=== PATIENT | female | born 2000 | race Caucasian/White ===

== ENCOUNTER 2022-12-31 23:52 | Emergency (ER) | payer OTHER, SELFPAY ==
[2022-12-31 23:57] VITALS: BP 127/76; PULSE 64; RESP 16; TEMP 36.8; O2SAT 95
[2023-01-01 00:28] LABS: Bilirubin Urine NEGATIVE (NEGATIVE); Blood Urine MODERATE (NEGATIVE); Clarity Urine CLEAR (CLEAR); Color Urine LT. YELLOW (YELLOW); Glucose Urine UA NEGATIVE (NEGATIVE); Ketones Urine NEGATIVE (NEGATIVE); Leukocyte Esterase Urine LARGE (NEGATIVE); Nitrite Urine NEGATIVE (NEGATIVE); Protein Urine 30 mg/dL (NEG/TRACE); Urobilinogen Urine 0.2 EU/dL (0.2-1.0)
[2023-01-01 00:29] LABS: Urine Microscopic Indicated YES
--- NOTE | 2023-01-01 00:30 | ED.FEMALEGU1 ---
HPI - Female Genitourinary General Chief complaint: Urogenital-Female Stated complaint: UTI COMPLAINTS, LEFT FLANK PAIN- COLD Time Seen by Provider: 01/01/23 00:27 Source: patient Mode of arrival: walk-in Limitations: no limitations History of Present Illness HPI Narrative: patient presents complaining of left CVA pain. Thought she may have a UTI. States she has been drinking plenty of fluids but little urine output. No fever or nausea. no known history of kidney stones Related Data Allergies Allergy/AdvReac Type Severity Reaction Status Date / Time No Known Drug Allergies Allergy Verified 12/31/22 23:57 Review of Systems ROS Status of ROS 10 or more systems reviewed and unremarkable except as noted in history and below PFSH PFS Social History Smoking status: Never smoker Exam Constitutional Vital Signs - 24 hr 12/31/22 23:57 Temperature 98.3 F Pulse Rate [Monitor] 64 Respiratory Rate 16 Blood Pressure [Left Arm] 127/76 H Pulse Oximetry 95 Oxygen Delivery Method Room Air Common normals: no apparent distress, oriented x3, no limitations and healthy appearing Eye Common normals: PERRL and EOMs intact bilaterally Neck & C-Spine Common normals: full ROM and supple Respiratory Common normals: normal respiratory effort and no retractions Cardio Common normals: no JVD, regular rate, regular rhythm, S1 normal heart sound and S2 normal heart sound GI Common normals: Normal to inspection, nondistended, normoactive bowel sounds present, soft to palpation and non-tender Back & Pelvis Common normals: no CVA tenderness and thoracic and lumbar spine normal to inspection Extremity Common normals: normal to inspection and full ROM Neuro Common normals: oriented x3, CN's II-XII intact bilaterally and moves all extremities Psych Appearance: grossly normal Course Vital Signs Vital signs: Vital Signs Temperature 98.3 F 12/31/22 23:57 Pulse Rate 64 12/31/22 23:57 Respiratory Rate 16 12/31/22 23:57 Blood Pressure 127/76 H 12/31/22 23:57 Pulse Oximetry 95 12/31/22 23:57 Oxygen Delivery Method Room Air 12/31/22 23:57 Temperature 98.3 F 12/31/22 23:57 Pulse Rate 64 12/31/22 23:57 Respiratory Rate 16 12/31/22 23:57 Blood Pressure 127/76 H 12/31/22 23:57 Pulse Oximetry 95 12/31/22 23:57 Oxygen Delivery Method Room Air 12/31/22 23:57 MDM - Female Genitourinary MDM Narrative Medical decision making narrative: patient presents with left CVA pain and urinary symptoms. CT neg for stone but findings supportive of early pyelonephritis. UA positive. Patient treated with dose of Rocephin and then discharged home with a prescription of Bactrim ds Clinically very stable. Lab Data Labs: Lab Results 01/01/23 01/01/23 01/01/23 Range/Units 00:05 00:29 00:49 WBC 12.8 H (4.0-11.0) 10^3/uL RBC 4.39 (4.20-5.40) 10^6/uL Hgb 12.4 (12.0-16.0) g/dL Hct 37.9 (36.0-48.0) % MCV 86.3 (81.0-99.0) fL MCH 28.2 (26.7-34.0) pg MCHC 32.7 (29.9-35.2) g/dL RDW 13.5 (11.0-15.0) % Plt Count 234 (150-450) 10^3/uL MPV 10.6 (9.5-13.5) fL Neut % (Auto) 70.9 (43.0-75.0) % Lymph % (Auto) 18.3 L (20.5-60.0) % [place] % (Auto) 8.7 (1.7-12.0) % Eos % (Auto) 1.5 (0.9-7.0) % Baso % (Auto) 0.2 (0.2-2.0) % Neut # (Auto) 9.1 H (1.4-6.5) 10^3/uL Lymph # (Auto) 2.4 (1.2-3.8) 10^3/uL [place] # (Auto) 1.1 H (0.3-0.8) 10^3/uL Eos # (Auto) 0.2 (0.0-0.7) 10^3/uL Baso # (Auto) 0.0 (0.0-0.1) 10^3/uL Abs Immat Gran (auto) 0.05 H (0.00-0.03) 10^3/uL Imm/Tot Granulo (auto) 0.4 (0.0-0.5) % Sodium 137 (136-145) mmol/L Potassium 3.4 L (3.5-5.1) mmol/L Chloride 104 (98-107) mmol/L Carbon Dioxide 26.3 (21.0-32.0) mmol/L Anion Gap 10.1 BUN 10.0 (7.0-18.0) mg/dL Creatinine 0.85 (0.55-1.02) mg/dL Est GFR ( Amer) >60 (>=60) Est GFR (Non-Af Amer) >60 (>=60) BUN/Creatinine Ratio 11.8 Glucose 107 H (74-106) mg/dL Calcium 9.4 (8.5-10.1) mg/dL Urine Color Lt. yellow (YELLOW) Urine Clarity Clear (CLEAR) Urine pH 7.0 (5.0-9.0) Ur Specific [place] 1.010 (1.005-1.025) Urine Protein 30 A (NEG/TRACE) mg/dL Urine Glucose (UA) Negative (NEGATIVE) mg/dL Urine Ketones Negative (NEGATIVE) mg/dL Urine Occult Blood Moderate A (NEGATIVE) Urine Nitrite Negative (NEGATIVE) Urine Bilirubin Negative (NEGATIVE) Urine Urobilinogen 0.2 (0.2-1.0) EU/dL Ur Leukocyte Esterase Large A (NEGATIVE) Urine RBC 5-10 A (0-2) #/HPF Urine WBC 75-100 A (NONE SEEN) #/HPF Ur Squamous Epith Cells Few A (NONE/RARE) #/LPF Urine Crystals None seen (None Seen) #/HPF Urine Bacteria Small A (NONE SEEN) #/HPF Urine Casts None seen (NONE SEEN) #/LPF Urine Mucus None seen (NONE SEEN) Ur Culture Indicated? Yes Urine HCG, Qual Negative (NEGATIVE) Discharge Plan Discharge Chief Complaint: Urogenital-Female Clinical Impression: Pyelonephritis Patient Disposition: Home, Self-Care Instructions: Kidney Infection (ED) Additional Instructions: follow up with your doctor in a couple of days for recheck Stand Alone Forms: Portal Instructions Referrals: Physician,Non-Staff, [Primary Care Provider] - 1 week
[2023-01-01 00:35] LABS: WBC Urine 75-100 #/HPF (NONE SEEN)
[2023-01-01 00:36] LABS: Bacteria Urine SMALL #/HPF (NONE SEEN); Cast Seen? NONE SEEN #/LPF (NONE SEEN); Crystals Seen? None Seen #/HPF (None Seen); Mucus Urine NONE SEEN (NONE SEEN); Squamous Epithelial Cell Urine FEW #/LPF (NONE/RARE); Urine Culture Indicated YES
--- NOTE | 2023-01-01 00:37 | CT_ITS ---
[address] [address] Patient Name: MARY BALL MRN: [id number] date: 2000 Sex: F Assigned Patient Location: ER Current Patient Location: ER Accession/Order Number: [id number] Exam Date: 01/01/2023 00:56 Report Date: 01/01/2023 01:43 At the request of: KILLIAN BARKER Procedure: CT abdomen pelvis wo con EXAMINATION:CT abdomen pelvis wo con INDICATION:Left flank pain. Sharp low back pain with painful urination COMPARISON:None TECHNIQUE:Multiple thin section transaxial slices were acquired through the abdomen and pelvis without intravenous contrast. Coronal and sagittal reconstructed images were reviewed. Oral contrastWas not administered. FINDINGS: LOWER CHEST: The lower chest is unremarkable. LIVER: The liver is unremarkable. GALLBLADDER AND BILIARY SYSTEM: No obvious ductal dilation. No calcified stones. SPLEEN: The spleen is unremarkable. PANCREAS: The pancreas is unremarkable. ADRENAL GLANDS: The adrenal glands are unremarkable. KIDNEYS AND URETERS: There is no definitive hydronephrosis identified in either kidney.There are no obstructing urologic calcifications. There is asymmetric perinephric fat stranding associated with the left mid to lower kidney which may represent a nonspecific infectious or inflammatory process. Pyelonephritis is not excluded. VASCULATURE: Vascularity is unremarkable. PERITONEUM/RETROPERITONEUM: There is a small amount of free fluid in the pelvis. LYMPH NODES: No suspicious lymphadenopathy. GASTROINTESTINAL TRACT: The bowel is normal in caliber.No acute inflammatory changes are associated with the bowel.The appendix is visualized and is not inflamed. BLADDER: The urinary bladder is unremarkable. REPRODUCTIVE SYSTEM: Reproductive system is unremarkable. BODY WALL: Unremarkable. BONES: Osseous structures are unremarkable. IMPRESSION: 1. No definitive obstructive uropathy or obstructing urologic calcifications. However, there is perinephric fat stranding associated with the left kidney concerning for a nonspecific infectious or inflammatory process. Electronically authenticated by: FELIPE BARBA Date: 01/01/2023 01:43
[2023-01-01 00:45] LABS: HCG Qualitative Urine* NEGATIVE (NEGATIVE)
[2023-01-01 00:55] LABS: Basophils Percent Auto 0.2 % (0.2-2.0); Eosinophils Absolute Auto 0.2 10^3/uL (0.0-0.7); Eosinophils Percent Auto 1.5 % (0.9-7.0); Hematocrit 37.9 % (36.0-48.0); Hemoglobin 12.4 g/dL (12.0-16.0); Immature Granulocytes Abs Auto 0.05 10^3/uL (0.00-0.03); Immature Granulocytes Pct Auto 0.4 % (0.0-0.5); Lymphocytes Absolute Auto 2.4 10^3/uL (1.2-3.8); Lymphocytes Percent Auto 18.3 % (20.5-60.0); Mean Corpuscular HGB Conc 32.7 g/dL (29.9-35.2); Mean Corpuscular Hemoglobin 28.2 pg (26.7-34.0); Mean Corpuscular Volume 86.3 fL (81.0-99.0); Mean Platelet Volume 10.6 fL (9.5-13.5); Monocytes Absolute Auto 1.1 10^3/uL (0.3-0.8); Monocytes Percent Auto 8.7 % (1.7-12.0); Neutrophils Absolute Auto 9.1 10^3/uL (1.4-6.5); Neutrophils Percent Auto 70.9 % (43.0-75.0); Platelet Count 234 10^3/uL (150-450); Red Blood Count 4.39 10^6/uL (4.20-5.40); Red Cell Distribution Width 13.5 % (11.0-15.0); White Blood Count 12.8 10^3/uL (4.0-11.0)
[2023-01-01 01:08] LABS: Anion Gap 10.1; BUN Creatinine Ratio 11.8; Calcium 9.4 mg/dL (8.5-10.1); Carbon Dioxide 26.3 mmol/L (21.0-32.0); Chloride 104 mmol/L (98-107); Estimated GFR (African America >60 (>=60); Estimated GFR (Non-African Ame >60 (>=60); Glucose 107 mg/dL (74-106); Potassium 3.4 mmol/L (3.5-5.1); Sodium 137 mmol/L (136-145)
== END 2023-01-01 03:23 | disposition home or self-care (01) ==
PROVIDERS: Emergency Provider Internal Medicine
DX: N12 Tubulo-interstitial nephritis, not specified as acute or chronic (principal)
CPT/HCPCS: 36415; 74176; 80048; 81003; 81015; 84703; 85025; 87086; 87150; 87186; 99284

== ENCOUNTER 2023-01-09 15:24 | Emergency (ER) | payer OTHER, SELFPAY ==
[2023-01-09 15:28] VITALS: BP 132/65; PULSE 99; RESP 18; TEMP 36.8; O2SAT 98; BMI 27.4
--- NOTE | 2023-01-09 15:37 | PC.NURSE ---
01/09/23 1537 PT REPORTS STARTING BACTRIM DS ON 12/30/22 3 DOSES LEFT. PT REPORTS YESTERDAY STARTING PINK SLIGHTLY ELEVATED HIVES TO RLE, LEFT UPPER ARM AND AXILLA, STOMACH AND BACK. PT DENIES ANY SOB OR INABILITY TO SWALLOW. Alex GE RN.
[2023-01-09 16:06] LABS: Bilirubin Urine NEGATIVE (NEGATIVE); Blood Urine NEGATIVE (NEGATIVE); Clarity Urine CLEAR (CLEAR); Color Urine LT. YELLOW (YELLOW); Glucose Urine UA NEGATIVE (NEGATIVE); Ketones Urine NEGATIVE (NEGATIVE); Leukocyte Esterase Urine NEGATIVE (NEGATIVE); Nitrite Urine NEGATIVE (NEGATIVE); Protein Urine NEGATIVE (NEG/TRACE); Specific Gravity Urine <=1.005 (1.005-1.025); Urobilinogen Urine 0.2 EU/dL (0.2-1.0)
[2023-01-09 16:10] LABS: HCG Qualitative Urine* NEGATIVE (NEGATIVE)
[2023-01-09 16:16] LABS: Bacteria Urine NONE SEEN #/HPF (NONE SEEN); Cast Seen? NONE SEEN #/LPF (NONE SEEN); Crystals Seen? None Seen #/HPF (None Seen); Mucus Urine TRACE (NONE SEEN); RBC Urine NONE SEEN #/HPF (0-2); Squamous Epithelial Cell Urine FEW #/LPF (NONE/RARE); Urine Culture Indicated NO; WBC Urine NONE SEEN #/HPF (NONE SEEN)
--- NOTE | 2023-01-09 16:19 | ED.GENADUL1 ---
HPI - General Adult General Chief complaint: Skin/Abscess/Foreign Body Stated complaint: POSS REACTION TO MEDICINE FOR KIDNEY INFECTION Time Seen by Provider: 01/09/23 15:31 Source: patient Mode of arrival: walk-in History of Present Illness HPI narrative: 22-year-old female presents here with a chief complaint of a rash. Patient has been taking Bactrim for the last eight or nine days for a known urinary tract infection. Today she woke up with welts to her left axillary area and lower legs and abdomen. She states they do itch. She denies any shortness of breath or difficulty breathing. She has no swelling, she states she does have sore throat. Note swelling is noted on examination initially. Rash is consistent with pruritic welts. Otherwise healthy. Related Data Previous Rx's Medication Instructions Recorded prednisone 20 mg tablet 20 mg PO BID 5 days #10 tabs 01/09/23 Allergies Allergy/AdvReac Type Severity Reaction Status Date / Time No Known Drug Allergies Allergy Verified 12/31/22 23:57 Review of Systems ROS Narrative All Systems are negative except as noted/marked.All systems reviewed and otherwise negative PFSH PFS Social History Smoking status: Never smoker Exam Narrative Exam Narrative: Nurses note and vital signs reviewed and patient is not hypoxic. General: The patient appears well and in no apparent distress. Patient is resting comfortably on cart. Skin: Warm, dry, no pallor noted. Red raised welt-like rash consistent with medication reaction To lower legs, left axilla and abdomen Head: Normocephalic, atraumatic Eye: Normal conjunctiva, no drainage, EOMI. PERRL Ears, Nose, Mouth, and Throat: oral mucosa is moist. Nares patent. Mouth without vesicles. Ear canals patent. Tm's without Erythema Cardiovascular: Regular Rate and Rhythm Respiratory: Patient is in no distress, no accessory muscle use, lungs are clear to auscultation, no wheezing, rales or rhonchi Musculoskeletal: The patient has no evidence of calf tenderness, no pitting edema, symmetrical pulses noted bilaterally Neurological: A&O x4, normal speech Psychiatric: Cooperative Constitutional Vital Signs - 24 hr 01/09/23 15:28 Temperature 98.2 F Pulse Rate [Monitor] 99 H Respiratory Rate 18 Blood Pressure [Left Arm] 132/65 H Pulse Oximetry 98 Oxygen Delivery Method Room Air Course Vital Signs Vital signs: Vital Signs Temperature 98.2 F 01/09/23 15:28 Pulse Rate 99 H 01/09/23 15:28 Respiratory Rate 18 01/09/23 15:28 Blood Pressure 132/65 H 01/09/23 15:28 Pulse Oximetry 98 01/09/23 15:28 Oxygen Delivery Method Room Air 01/09/23 15:28 Temperature 98.2 F 01/09/23 15:28 Pulse Rate 99 H 01/09/23 15:28 Respiratory Rate 18 01/09/23 15:28 Blood Pressure 132/65 H 01/09/23 15:28 Pulse Oximetry 98 01/09/23 15:28 Oxygen Delivery Method Room Air 01/09/23 15:28 Medical Decision Making MDM Narrative Medical decision making narrative: Patient presented here chief complaint rash. Rash consistent with ALLERGIC reaction to probable sulfa. Patient instructed to stop taking sulfa medication. Urinalysis is unremarkable no acute urinary tract infection at this time. Patient be given a dose of steroids here and discharged home with Medrol Dosepak. Follow-up with primary care physician. Patient verbalized understanding, Agrees with plan of care. Lab Data Labs: Lab Results 01/09/23 Range/Units 15:57 Urine Color Lt. yellow (YELLOW) Urine Clarity Clear (CLEAR) Urine pH 6.0 (5.0-9.0) Ur Specific [place] <=1.005 A (1.005-1.025) Urine Protein Negative (NEG/TRACE) mg/dL Urine Glucose (UA) Negative (NEGATIVE) mg/dL Urine Ketones Negative (NEGATIVE) mg/dL Urine Occult Blood Negative (NEGATIVE) Urine Nitrite Negative (NEGATIVE) Urine Bilirubin Negative (NEGATIVE) Urine Urobilinogen 0.2 (0.2-1.0) EU/dL Ur Leukocyte Esterase Negative (NEGATIVE) Urine RBC None seen (0-2) #/HPF Urine WBC None seen (NONE SEEN) #/HPF Ur Squamous Epith Cells Few A (NONE/RARE) #/LPF Urine Crystals None seen (None Seen) #/HPF Urine Bacteria None seen (NONE SEEN) #/HPF Urine Casts None seen (NONE SEEN) #/LPF Urine Mucus Trace A (NONE SEEN) Ur Culture Indicated? No Discharge Plan Discharge Chief Complaint: Skin/Abscess/Foreign Body Clinical Impression: Rash due to allergy Patient Disposition: Home, Self-Care Time of Disposition Decision: 16:23 Prescriptions / Home Meds: New prednisone 20 mg tablet 20 mg PO BID 5 Days Qty: 10 0RF Instructions: Acute Rash (ED) Stand Alone Forms: Portal Instructions Referrals: Physician,Non-Staff, MD [Primary Care Provider] - 1 week
[2023-01-09] MEDS: DEXAMETHASONE SODIUM PHOSPHATE 10 MG/ML VIAL PO (16:33)
[2023-01-09 16:36] VITALS: BP 134/68; PULSE 77; RESP 16; O2SAT 100
== END 2023-01-09 16:39 | disposition home or self-care (01) ==
PROVIDERS: Physician Assistant; Emergency Provider Emergency Medicine
DX: T78.40XA Allergy, unspecified, initial encounter (principal); Z87.440 Personal history of urinary (tract) infections
CPT/HCPCS: 81001; 84703; 99283; J1100

== ENCOUNTER 2023-07-24 17:57 | Outpatient (OUT) | payer OTHER, SELFPAY ==
[2023-07-24 18:24] LABS: Bilirubin Urine NEGATIVE (NEGATIVE); Blood Urine NEGATIVE (NEGATIVE); Clarity Urine CLEAR (CLEAR); Color Urine LT. YELLOW (YELLOW); Glucose Urine UA NEGATIVE (NEGATIVE); Ketones Urine 15 mg/dL (NEGATIVE); Leukocyte Esterase Urine NEGATIVE (NEGATIVE); Nitrite Urine NEGATIVE (NEGATIVE); Protein Urine NEGATIVE (NEG/TRACE); Specific Gravity Urine <=1.005 (1.005-1.025); Urine Microscopic Indicated NO; Urobilinogen Urine 0.2 EU/dL (0.2-1.0); pH Urine 6.5 (5.0-9.0)
--- NOTE | 2023-07-24 19:35 | PC.NURSE ---
182: Urinalysis obtained and sent to lab. 1849: Patient denies increase pain and states can feel baby is active. Denies vaginal discharge, bleeding and abdominal tightening, abdomen palpates soft during 10 minutes of FHT external monitoring. 1853: Raleigh Naylor CNM notified of UA results, patient complaints and assessment specialist of complaints-denies feeling sharp pains on side of abdomen when lying down on bed, non tender flank area bilaterally. CNM calls in and talks with patient and reviews home going instructions with instruction to call CNM in morning for update/concerns. May use heating pad to back and extra strength tylenol prn for back pain. Return with increase in symptoms- patient verbalized understanding. Accompanied by and discharged ambulatory undelivered at 1920.
== END 2023-07-24 19:20 | disposition home or self-care (01) ==
LOC: FBCO 18:01 → FBC 18:05
PROVIDERS: Visit Provider Midwife
DX: O26.892 Other specified pregnancy related conditions, second trimester (principal); R10.9 Unspecified abdominal pain; M54.9 Dorsalgia, unspecified; Z3A.21 21 weeks gestation of pregnancy
CPT/HCPCS: 59025; 81003

== ENCOUNTER 2023-07-25 16:35 | Emergency (ER) | payer OTHER, SELFPAY | END 2023-07-25 16:53 | disposition left against medical advice (07) | LOC: ER 16:38 | PROVIDERS: Emergency Provider Emergency Medicine | DX: Z53.21 Procedure and treatment not carried out due to patient leaving prior to being seen by health care provider (principal) ==

== ENCOUNTER 2023-07-25 16:45 | Observation (INO) | payer OTHER, SELFPAY ==
--- NOTE | 2023-07-25 17:09 | US_ITS ---
[address] [address] Patient Name: MARY GAMEZ MRN: [id number] date: 2000 Sex: F Assigned Patient Location: [facility] Current Patient Location: [facility] Accession/Order Number: [id number] Exam Date: 07/25/2023 17:10 Report Date: 07/25/2023 17:57 At the request of: CHAYO CHINO Procedure: US renal BI EXAM: Complete renal ultrasound REASON FOR EXAM: Female, 22 years, left flank pain and back pain. TECHNIQUE: Transabdominal ultrasound was performed with real-time and static grayscale imaging. TECHNICAL QUALITY: Technique is adequate. COMPARISON: CT 01/01/2023 FINDINGS: RIGHT KIDNEY: Normal size of the kidney. The kidney measures 11.3 x 5.3 x 5.3 cm. Normal renal cortex. There is no demonstrated renal mass or cyst. There is no hydronephrosis. There is normal vascularity of the right kidney on limited color Doppler scanning. LEFT KIDNEY: Normal size of the kidney. The kidney measures 10 x 5 x 4.7 cm. Normal renal cortex. There is no demonstrated renal mass or cyst. There is no hydronephrosis. There is normal vascularity of the left kidney on limited color Doppler scanning. Bladder: The bladder is mildly distended at the time of scanning. The bladder wall is not thickened. There is no visualized bladder wall mass. AORTA: Not imaged. IVC: Not imaged. US/US renal BI IMPRESSION: Normal renal ultrasound. Electronically authenticated by: BRIGITTE ZAVALA Date: 07/25/2023 17:57
[2023-07-25 17:33] LABS: Basophils Percent Auto 0.2 % (0.2-2.0); Eosinophils Absolute Auto 0.1 10^3/uL (0.0-0.7); Eosinophils Percent Auto 0.4 % (0.9-7.0); Hematocrit 36.6 % (36.0-48.0); Hemoglobin 12.4 g/dL (12.0-16.0); Immature Granulocytes Abs Auto 0.09 10^3/uL (0.00-0.03); Immature Granulocytes Pct Auto 0.6 % (0.0-0.5); Lymphocytes Absolute Auto 1.1 10^3/uL (1.2-3.8); Lymphocytes Percent Auto 7.7 % (20.5-60.0); Mean Corpuscular HGB Conc 33.9 g/dL (29.9-35.2); Mean Corpuscular Hemoglobin 30.5 pg (26.7-34.0); Mean Corpuscular Volume 89.9 fL (81.0-99.0); Mean Platelet Volume 10.7 fL (9.5-13.5); Monocytes Absolute Auto 0.6 10^3/uL (0.3-0.8); Monocytes Percent Auto 3.9 % (1.7-12.0); Neutrophils Absolute Auto 12.4 10^3/uL (1.4-6.5); Neutrophils Percent Auto 87.2 % (43.0-75.0); Platelet Count 186 10^3/uL (150-450); Red Blood Count 4.07 10^6/uL (4.20-5.40); Red Cell Distribution Width 13.8 % (11.0-15.0); White Blood Count 14.3 10^3/uL (4.0-11.0)
[2023-07-25 17:35] VITALS: BP 120/64; PULSE 80
[2023-07-25 17:41] LABS: Bilirubin Urine NEGATIVE (NEGATIVE); Blood Urine NEGATIVE (NEGATIVE); Clarity Urine CLEAR (CLEAR); Color Urine YELLOW (YELLOW); Glucose Urine UA NEGATIVE (NEGATIVE); Ketones Urine >=80 mg/dL (NEGATIVE); Leukocyte Esterase Urine NEGATIVE (NEGATIVE); Nitrite Urine NEGATIVE (NEGATIVE); Protein Urine TRACE mg/dL (NEG/TRACE); Specific Gravity Urine 1.025 (1.005-1.025); Urobilinogen Urine 0.2 EU/dL (0.2-1.0)
[2023-07-25 17:44] LABS: Urine Microscopic Indicated YES
[2023-07-25 17:46] LABS: Alanine Aminotransferase 21 U/L (14-59); Albumin Globulin Ratio 0.8; Albumin Level 3.4 g/dL (3.4-5.0); Alkaline Phosphatase 73 U/L (46-116); Aspartate Amino Transferase 15 U/L (15-37); BUN Creatinine Ratio 12.1; Bilirubin Total 0.3 mg/dL (0.2-1.0); Carbon Dioxide 19.5 mmol/L (21.0-32.0); Chloride 104 mmol/L (98-107); Estimated GFR (African America >60 (>=60); Estimated GFR (Non-African Ame >60 (>=60); Globulin 4.1 g/dL; Glucose 78 mg/dL (74-106); Potassium 3.5 mmol/L (3.5-5.1); Sodium 137 mmol/L (136-145); Total Protein 7.5 g/dL (6.4-8.2)
[2023-07-25 17:48] LABS: Bacteria Urine MODERATE #/HPF (NONE SEEN); Cast Seen? NONE SEEN #/LPF (NONE SEEN); Crystals Seen? None Seen #/HPF (None Seen); Mucus Urine SMALL (NONE SEEN); RBC Urine 0-2 #/HPF (0-2); Squamous Epithelial Cell Urine MODERATE #/LPF (NONE/RARE); Urine Culture Indicated YES
--- NOTE | 2023-07-25 17:51 | PC.NURSE ---
1700: Patient arrives from ER triage with c/o increased back pain and foul odor to urine today. Denies fever,sweats, or chills. 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 C. o generalized belly tenderness since vomiting earlier today from back pain. To room 252 via w/c and oriented to room. TC to CNM and orders received. 1707: US ay bedside. 1725: Lab at bedside. 1730: Urinalysis obtained and sent to lab for culture and analysis. 1735 FHT's auscultated with efm- 140-145 with active movement. [place] only remains on for tracing. 1800: Urinalysis result reported to CNM.
--- NOTE | 2023-07-25 19:27 | W.PC.ACHO ---
Registration Status: ADM WENDY Primary Language: Preferred Language: Active Medications Generic Name Dose Route Start Last Admin Trade Name Freq PRN Reason Stop Dose Admin Acetaminophen 1,000 mg 07/25/23 18:49 Acetaminophen 500 Mg Tablet PO Q6H PRN Pain Scale 1-3 Acetaminophen/Codeine Phosphate 1 tab 07/25/23 18:44 Acetaminophen With Codeine 1 Tab Tablet PO Q6H PRN Pain Scale 4-6 Calcium Carbonate 500 mg 07/25/23 18:49 Calcium Carbonate 500 Mg (200mg Elemental) Tab Chew PO TID PRN heartburn Lactated Ringer's 1,000 mls @ 125 mls/hr 07/25/23 18:45 Lactated Ringers IV .Q8H ANTIONETTE Ampicillin 2,000 mg/ Sodium 100 mls @ 200 mls/hr 07/25/23 22:00 Chloride IV QID ANTIONETTE Ondansetron HCl 4 mg 07/25/23 18:44 Ondansetron Pf 4 Mg/2 Ml Vial IV Q6H PRN Nausea Zolpidem Tartrate 5 mg 07/25/23 18:49 Zolpidem Tartrate 5 Mg Tablet PO HS PRN sleep Diet Category Date Time Status Regular Consistency Diet Diet 07/25/23 18:51 Active
[2023-07-25] MEDS: LACTATED RINGER'S SOLUTION 1,000 ML 999 ML IV (19:50)
[2023-07-25] MEDS: ONDANSETRON PF 4 MG/2 ML VIAL IV (20:01)
[2023-07-25] MEDS: ACETAMINOPHEN 500 MG TABLET 1000 MG PO (21:29)
[2023-07-25] MEDS: AMPICILLIN SODIUM 2,000 MG in 0.9 % SODIUM CHLORIDE 100 ML 200 MG IV (21:31)
[2023-07-25 21:41] VITALS: BP 106/54; PULSE 75
[2023-07-26] MEDS: LACTATED RINGER'S SOLUTION 1,000 ML 125 ML IV (00:47)
[2023-07-26] MEDS: ZOLPIDEM TARTRATE 5 MG TABLET PO (00:48)
[2023-07-26] MEDS: ONDANSETRON PF 4 MG/2 ML VIAL IV ×2 (02:19→10:08)
[2023-07-26 02:20] VITALS: TEMP 37.1
[2023-07-26] MEDS: AMPICILLIN SODIUM 2,000 MG in 0.9 % SODIUM CHLORIDE 100 ML 200 MG IV ×2 (04:15→09:49)
[2023-07-26] MEDS: ACETAMINOPHEN 500 MG TABLET 1000 MG PO ×2 (05:00→10:08)
--- NOTE | 2023-07-26 07:21 | W.PC.ACHO ---
Registration Status: ADM WENDY Primary Language: Preferred Language: Report given to Brandi Downey RN Active Medications Generic Name Dose Route Start Last Admin Trade Name Freq PRN Reason Stop Dose Admin Acetaminophen 1,000 mg 07/25/23 18:49 07/26/23 05:00 Acetaminophen 500 Mg Tablet PO 1,000 mg Q6H PRN Administration Pain Scale 1-3 Acetaminophen/Codeine Phosphate 1 tab 07/25/23 18:44 Acetaminophen With Codeine 1 Tab Tablet PO Q6H PRN Pain Scale 4-6 Calcium Carbonate 500 mg 07/25/23 18:49 Calcium Carbonate 500 Mg (200mg Elemental) Tab Chew PO TID PRN heartburn Lactated Ringer's 1,000 mls @ 125 mls/hr 07/25/23 18:45 07/26/23 00:47 Lactated Ringers IV 125 mls/hr .Q8H ANTIONETTE Administration Ampicillin 2,000 mg/ Sodium 100 mls @ 200 mls/hr 07/25/23 22:00 07/26/23 04:45 Chloride IV Infused QID ANTIONETTE Infusion Ondansetron HCl 4 mg 07/25/23 18:44 07/26/23 02:19 Ondansetron Pf 4 Mg/2 Ml Vial IV 4 mg Q6H PRN Administration Nausea Zolpidem Tartrate 5 mg 07/25/23 18:49 07/26/23 00:48 Zolpidem Tartrate 5 Mg Tablet PO 5 mg HS PRN Administration sleep Diet Category Date Time Status Regular Consistency Diet Diet 07/25/23 18:51 Active IV Insertion/Site Date of IV Line Insertion [20g 07/25/23 right Forearm] IV Insertion Time [20g right 19:45 Forearm]
[2023-07-26 08:48] VITALS: RESP 18; TEMP 37.6
[2023-07-26 08:52] VITALS: BP 110/57; PULSE 81
--- NOTE | 2023-07-26 08:52 | P.EN_ITS ---
Event Note Event Note: patient presents yesterday to unit with c/o nausea, vomiting and low back pain. she called me with concerns of not feeling well and states I had a kidney infection before and it feels like that. My back hurts, tender on my left side and I've vomited from nausea. I did advise her to return to [facility]. During her stay here she has vomited 2-3 times, c/o nausea and L flank pain. Upon my exam today she has no CVA tenderness and points to her lower right side and states that's a little tender, but I feel much better than when I came. Her exam in normal, Heart-normal rate and rhythm, Lungs are clear to all bases. No CVA tenderness, abdomen is soft and non tender. Patient is and has been afe brile. She does have slightly elevated WBCs and neutrophils. I do want to continue to treat for UTI. Patient states she would like to go home as I know i can rest better at home. She is scheduled to see me on Aug 20 for routine PNC visit, but I would like to see her this coming week for follow up. PVU and agrees to return to the hospital if symptoms worsen or any other needs.
--- NOTE | 2023-07-26 09:40 | PC.NURSE ---
taking carly and Zhanna cordova in to see and discusses plan of care
== END 2023-07-26 10:59 | disposition home or self-care (01) ==
PROVIDERS: Admitting Provider Midwife; Visit Provider Midwife
DX: O23.40 Unspecified infection of urinary tract in pregnancy, unspecified trimester (principal); N39.0 Urinary tract infection, site not specified; Z3A.00 Weeks of gestation of pregnancy not specified
CPT/HCPCS: 36415; 76775; 80053; 81001; 85025; 87086; 96361; 96365; 96375; 96376; G0378; G0379; J0290; J2405

== ENCOUNTER 2023-08-08 14:45 | Emergency (ER) | payer OTHER, SELFPAY ==
[2023-08-08 14:52] VITALS: BP 146/85; PULSE 91; RESP 18; TEMP 36.7; O2SAT 98; BMI 35.9
--- OUTSIDE RECORDS SUMMARY | 2023-08-08 15:15 | XMS_ITS | CCD ---
Author Name Unknown Address [address] [place] [address] Organization [facility] Care Team Providers Care Physical Testing Supervisor Name Role Phone Toni Hermosillo MD Primary Care Provider TONI HERMOSILLO Attending Unavailable TONI HERMOSILLO Primary Care Unavailable TONI HERMOSILLO Primary Care Unavailable RUTH AGUILAR Attending Unavailable TONI HERMOSILLO Primary Care Unavailable CHAYO CHINO Referring Unavailable CHAYO CHINO Attending Unavailable CHAYO CHINO Attending Unavailable CHAYO CHINO Attending Unavailable Problems Active Problems Problem Classification Problem Date Documented Date Episodic/Chronic Conduction disorders (1 source) Left bundle branch block; Translations: [Left bundle-branch block, unspecified] Onset: 12-10-2012 12-10-2012 Chronic Joint disorders and dislocations; trauma-related (1 source) Patellofemoral syndrome of left knee; Translations: [Patellofemoral disorders, left knee] Onset: 09-10-2017 09-10-2017 Chronic Past or Other Problems Problem Classification Problem Date Documented Da te Episodic/Chronic Other circulatory disease (1 source) Elevated blood-pressure reading without diagnosis of hypertension; Translations: [Elevated blood-pressure reading, without diagnosis of hypertension] Onset: 07-03-2021 07-03-2021 Episodic Other non-traumatic joint disorders (1 source) Pain in left knee; Translations: [Pain in joint, lower leg] Onset: 09-10-2017 09-10-2017 Episodic Results Test Name Value Interpretation Reference Range Facil ity US OB 14+ WEEKS ANATOMY SCAN on 07-22-2023 US OB 14+ WEEKS ANATOMY SCAN ADDENDUM #1 IMPRESSION: EFW 402 g, 67%ile. ELECTRONICALLY SIGNED BY: Terell Welch MD EXAMINATION: LIMITED ULTRASOUND UTERUS, 2/3 TRIMESTER REASON FOR EXAMINATION: Check anatomy. 1 para Miscarriage . COMPARISONS: NONE Gestational age by previous sonogram: Weeks days LMP: 02/27/2023, Age by LMP: 20 weeks 5 days, INDIGO(LMP): 12/04/2023. FINDINGS: Transabdominal ultrasonography of the gravid uterus was performed. A single living intrauterine is present. The fetus lies in a breech presentation. No abnormalities are noted. BPD 5.04 cm corresponding to gestational age of 21 w 2 d HC 18.62 cm corresponding to gestational age of 21 w 0 d AC 16.30 cm corresponding to gestational age of 31 w 3 d FL 3.46 cm corresponding to gestational age of 20 w 6 d EFW 402 g, %ile. The placenta lies in a fundal position and is intact. The placenta is not low lying. The placenta is a grade 0. The cervix is closed and measures 3.26 cm. heart rate recorded at 141 bpm. The amount of the amniotic fluid is within normal limits. ANA LILIA is 14.25 cm, 15%ile. The average ultrasound gestational age measures 21 weeks 1 days. INDIGO 12/01/2023 IMPRESSION: Single live intrauterine . ELECTRONICALLY SIGNED BY: Terell Welch MD Normal Not Available GROUP A STREP MOLECULAR,THRO ATon 09-17-2022 S. pyogenes DNA ABNER+probe Ql (Throat) Not detected Not Detected [facility] Group A Strep Molecular,Thro aton 09-17-2022 Group A Strep Molecular,Throa t Not detected Normal NODT [facility] S. pyogenes DNA ABNER+probe Ql (Throat)on 09-17-2022 [facility] Encounters Encounter Date Encounter Type Care Provider Facility Start: 08-01-2023 End: 08-02-2023 ambulatory CHAYO FLORO Not Available Start: 07-22-2023 End: 07-23-2023 ambulatory CHAYO L FLORO Not Available Start: 06-24-2023 End: 06-25-2023 ambulatory CHAYO L FLORO Not Available Start: 06-24-2023 ambulatory TONI HERMOSILLO [facility] Start: 05-26-2023 End: 05-27-2023 ambulatory CHAYO L FLORO Not Available Start: 09-16-2022 End: 09-17-2022 ambulatory TONI HERMOSILLO [facility] Start: 09-16-2022 End: 09-16-2022 Subsequent hospital visit by physician Toni Hermosillo MD Work Phone: [facility] Lab Area Procedures Date Procedure Procedure Detail Performing Clinician Start: 09-16-2022 Streptococcus pyogen es DNA [Presence] in Throat by ABNER with probe detection Toni Hermosillo MD Work Phone: Plan of Treatment Date Care Activity Detail Author Start: 06-24-2023 End: 06-24-2023 Patient encounter procedure Cardiology Non-invasive [facility] Start: 03-07-2022 Influenza vaccination INFLUENZA VACC INE (#1) [facility] Start: 2012 MENB (1 of 2 - Risk Bexsero 2-dose series) MENB (1 of 2 - Risk Bexsero 2-dose series) [facility] Start: 2011 HPV VACCINES (1 - 2- dose series) HPV VACCINES (1 - 2-dose series) [facility] Start: 2009 DTaP/Tdap/Td VACCINE S (1 - Tdap) DTaP/Tdap/Td VACCINES (1 - Tdap) [facility] Start: 2003 MMR VACCINES (1 of 1 - Standard series) MMR VACCINES (1 of 1 - Standard series) [facility] Start: 2003 VARICELLA VACCINES ( 1 of 2 - 2-dose childhood series) VARICELLA VACCINES (1 of 2 - 2-dose childhood series) [facility] Start: 02-02-2003 COVID-19 Vaccine (#1) COVID-19 Vacci ne (#1) [facility] Start: 2002 HEPATITIS B VACCINES (1 of 3 - 3-dose series) HEPATITIS B VACCINES (1 of 3 - 3-dose series) [facility] Payers Date Payer Category Payer Unknown [id number] 2002 Unknown [id number] 2002 Unknown [id number] 2002 Unknown [id number] 2002 Unknown [id number] 2002 Unknown [id number] 2002 Unknown [id number] 2002 Unknown [id number] Medicaid [facility] [place] [id number] Effective for all dates [address] [place] [address] Medicaid Cap [id number] Social History Date Type Detail Facility Start: 04-01-2017 Tobacco smoking stat [facility] Never smoked tobacco [facility] Start: 04-01-2017 Tobacco use and exposure Smokeless tobacco non-user [facility] Start: 07-03-2021 Alcohol intake Not Asked [facility] Start: 2002 [facility] Purpose Family History No Family History Records FoundNo Family History Records Found Advance Directives No Advanced Directives Records FoundNo Advanced Directives Records Found Additional Source Comments Care Teams (unrecognized sec tion and content) Physical Testing Supervisor Relationship Specialty Start Date End Date Toni Hermosillo MD [address] [place] [address] PCP - General 04/24/06 INFORMATION SOURCE (unrecogn ized section and content) DATE CREATED AUTHOR 07/02/2023 [facility] DATE CREATED AUTHOR 'S NABIL ATRAMILA 2023 [facility] EPIC FOR RECORDS PERTAINING TO PATIENTS WHO ARE OR HAVE BEEN ENROLLED IN A CHEMICAL DEPENDENCY/SUBSTANCEABUSE PROGRAM, SOME INFORMATION MAY BE OMITTED. This clinical summary was aggregated from multiple sources. Caution should be exercised in using it in the provision of clinical care. This summary normalizes information from multiple sources, and as a consequence, information in this document may materially change the coding, format and clinical context of patient data. In addition, data may be omitted in some cases. CLINICAL DECISIONS SHOULD BE BASED ON THE PRIMARY CLINICAL RECORDS. [facility] provides no warranty or guarantee of the accuracy or completeness of information in this document.
[2023-08-08 15:36] LABS: Bilirubin Urine NEGATIVE (NEGATIVE); Blood Urine NEGATIVE (NEGATIVE); Clarity Urine CLEAR (CLEAR); Color Urine LT. YELLOW (YELLOW); Glucose Urine UA NEGATIVE (NEGATIVE); Ketones Urine TRACE mg/dL (NEGATIVE); Leukocyte Esterase Urine NEGATIVE (NEGATIVE); Nitrite Urine NEGATIVE (NEGATIVE); Protein Urine NEGATIVE (NEG/TRACE); Specific Gravity Urine <=1.005 (1.005-1.025); Urobilinogen Urine 0.2 EU/dL (0.2-1.0)
[2023-08-08 15:43] LABS: Bacteria Urine SMALL #/HPF (NONE SEEN); Cast Seen? NONE SEEN #/LPF (NONE SEEN); Crystals Seen? None Seen #/HPF (None Seen); Mucus Urine NONE SEEN (NONE SEEN); RBC Urine 0-2 #/HPF (0-2); Squamous Epithelial Cell Urine MODERATE #/LPF (NONE/RARE); WBC Urine NONE SEEN #/HPF (NONE SEEN)
--- NOTE | 2023-08-08 15:43 | ED_ITS ---
HPI - General Adult General Chief complaint: Abdominal Pain Stated complaint: LOWER BACK PAIN Time Seen by Provider: 08/08/23 15:03 Mode of arrival: walk-in History of Present Illness HPI narrative: 23-year-old female who is twenty-three weeks five days presents to The emergency room with chief complaint of lower back flank pain. She's had the pain on and off for the last couple of weeks. She was seen by her DRESSMAKER GARMENT FITTER placed on Macrobid previously For suspected urinary tract infection. She states she has occasional sharp shooting pain to the lower flank lumbar area.She denies any fevers or chills. Denies any vaginal bleeding Or abdominal pain. Patient's felt movement and heart tones were one fifty-five today. Patieent's vital signs are stable Related Data Previous Rx's Medication Instructions Recorded prednisone 20 mg tablet 20 mg PO BID 5 days #10 tabs 01/09/23 acetaminophen 500 mg tablet 1,000 mg (2 x 500 mg) PO Q6H PRN 07/26/23 Pain Scale 1-3 4 days #20 tabs nitrofurantoin 100 mg PO BID 5 days #10 caps 07/26/23 monohydrate/macrocrystals 100 mg capsule (Macrobid) ondansetron 8 mg disintegrating 8 mg PO Q8H PRN nausea and 07/26/23 tablet vomiting 5 days #20 tabs prednisone 20 mg tablet 20 mg PO BID 7 days #14 tabs 08/08/23 Allergies Allergy/AdvReac Type Severity Reaction Status Date / Time sulfamethoxazole Allergy Intermediate Rash Verified 07/26/23 07:53 [From Bactrim] trimethoprim [From Bactrim] Allergy Intermediate Rash Verified 07/26/23 07:53 Review of Systems ROS Narrative All Systems are negative except as noted/marked.All systems reviewed and otherwise negative PFSH PFSH Social History Smoking status: Never smoker Exam Narrative Exam Narrative: Nurses note and vital signs reviewed and patient is not hypoxic. General: The patient appears well and in no apparent distress. Patient is resting comfortably on cart. Skin: Warm, dry, no pallor noted. There is no rash noted. Head: Normocephalic, atraumatic Respiratory: Patient is in no distress, no accessory muscle use, lungs are clear to auscultation, no wheezing, rales or rhonchi Back: no flank tenderness to palpation non-tender, no CVA tenderness bilaterally to percussion. GI: Normal bowel sounds, no tenderness to palpation, no masses appreciated. No rebound, guarding, or rigidity noted. Musculoskeletal: The patient has no evidence of calf tenderness, no pitting edema, symmetrical pulses noted bilaterally Neurological: A&O x4, normal speech Psychiatric: Cooperative Constitutional Vital Signs, click to edit/add: Last Vital Signs Temp 98.0 F 08/08/23 14:52 Pulse 91 H 08/08/23 14:52 Resp 18 08/08/23 14:52 BP 146/85 H 08/08/23 14:52 Pulse Ox 98 08/08/23 14:52 Course Vital Signs Vital signs: Vital Signs Temperature 98.0 F 08/08/23 14:52 Pulse Rate 91 H 08/08/23 14:52 Respiratory Rate 18 08/08/23 14:52 Blood Pressure 146/85 H 08/08/23 14:52 Pulse Oximetry 98 08/08/23 14:52 Temperature 98.0 F 08/08/23 14:52 Pulse Rate 91 H 08/08/23 14:52 Respiratory Rate 18 08/08/23 14:52 Blood Pressure 146/85 H 08/08/23 14:52 Pulse Oximetry 98 08/08/23 14:52 Medical Decision Making [facility] Narrative Medical decision making narrative: Patient's 23-year-old one para zero with chief complaint of flank pain and lower back pain. Urinalysis here is unremarkable. Patient has completed a course of antibiotics. The pain she is describing is a musculoskeletal pain. I do not believe she has a kidney stone. She has no pain to palpation the flank area. Patient's alert and oriented. I did discuss stretching and exercises with patient and also maybe massage therapy as it may be due to him lower muscle strain. Patient will follow-up with blanca schmitt her surgical endoscopist.Patient was discharged home a short course of steroids. She denies taking any steroids recently. Patient's home she does use ice or heat therapy. Differential Diagnosis Differential Diagnosis: Musko skeletal pain, kidney stone, urinary tract infection Medical Records Medical records reviewed: Yes I reviewed the patient's medical records Lab Data Lab results reviewed: Yes I reviewed the patient's lab results Labs: Lab Results 08/08/23 Range/Units 15:27 Urine Color Lt. yellow (YELLOW) Urine Clarity Clear (CLEAR) Urine pH 7.0 (5.0-9.0) Ur Specific Randolph <=1.005 A (1.005-1.025) Urine Protein Negative (NEG/TRACE) mg/dL Urine Glucose (UA) Negative (NEGATIVE) mg/dL Urine Ketones Trace A (NEGATIVE) mg/dL Urine Occult Blood Negative (NEGATIVE) Urine Nitrite Negative (NEGATIVE) Urine Bilirubin Negative (NEGATIVE) Urine Urobilinogen 0.2 (0.2-1.0) EU/dL Ur Leukocyte Esterase Negative (NEGATIVE) Urine RBC 0-2 (0-2) #/HPF Urine WBC None seen (NONE SEEN) #/HPF Ur Squamous Epith Cells Moderate A (NONE/RARE) #/LPF Urine Crystals None seen (None Seen) #/HPF Urine Bacteria Small A (NONE SEEN) #/HPF Urine Casts None seen (NONE SEEN) #/LPF Urine Mucus None seen (NONE SEEN) Discharge Plan Discharge Chief Complaint: Abdominal Pain Clinical Impression: Back pain Patient Disposition: Home, Self-Care Time of Disposition Decision: 15:49 Condition: Good Prescriptions / Home Meds: New prednisone 20 mg tablet 20 mg PO BID 7 Days Qty: 14 0RF No Action prednisone 20 mg tablet 20 mg PO BID 5 Days Qty: 10 0RF acetaminophen 500 mg Tablet 1,000 mg PO Q6H PRN (Reason: Pain Scale 1-3) 4 Days Qty: 20 0RF nitrofurantoin monohyd/m-cryst [Macrobid] 100 mg capsule 100 mg PO BID 5 Days Qty: 10 0RF Rx Instructions: must administer with a meal/food ondansetron 8 mg tablet,disintegrating 8 mg PO Q8H PRN (Reason: nausea and vomiting) 5 Days Qty: 20 0RF Instructions: Back Pain (ED), Lower Back Exercises (ED) Stand Alone Forms: Portal Instructions Referrals: Physician,Non-Staff, MD [Primary Care Provider] - 1 week CHAYO SCHMITT APRN, CNM [Physician] - 1 week
== END 2023-08-08 16:16 | disposition home or self-care (01) ==
PROVIDERS: Physician Assistant; Emergency Provider Emergency Medicine Emergency Medical Services
DX: O26.892 Other specified pregnancy related conditions, second trimester (principal); M54.9 Dorsalgia, unspecified; Z3A.23 23 weeks gestation of pregnancy
CPT/HCPCS: 81001; 99283

== ENCOUNTER 2023-09-26 15:11 | Observation (INO) | payer OTHER, SELFPAY ==
[2023-09-26 15:30] VITALS: BP 126/63; PULSE 81
--- OUTSIDE RECORDS SUMMARY | 2023-09-26 15:31 | XMS_ITS | CCD ---
Author Organization [facility] Care Team Providers Care Multimedia Services Manager Name Role Phone Toni Hermosillo MD Primary Care Provider TONI HERMOSILLO Attending Unavailable TONI HERMOSILLO Primary Care Unavailable TONI HERMOSILLO Primary Care Unavailable RUTH AGUILAR Attending Unavailable TONI HERMOSILLO Primary Care Unavailable Unavailable Primary Care Provider UnavailCHAYO Pereira Referring Unavailable CHAYO NAYLOR Attending Unavailable CHAYO NAYLOR Attending Unavailable CHAYO NAYLOR Attending Unavailable CHAYO NAYLOR Attending Unavailable Allergies Allergy Classification Reported Allergen(s) Allergy Type Date of Onset Reaction(s) Facility (5 sources) Sulfonamides (Antibiotic) Propensity to adverse reactions 3 Hives [facility] Medications Current Medications Medication Drug Class(es) Dates Sig (Normalized) Sig (Original) MV-Min-Fe Fum-FA-DHA ( 1 PO) (5 sources) MV-Min- Fe Fum-FA-DHA ( 1 PO) Take by mouth. 0 Active Completed/Discontinued Medications Medication Drug Class(es) Dates Sig (Normalized) Sig (Original) penicillin v potassium 500 mg oral tablet (2 sources) Start: 06-24-2023 End: 07-22-2023 take 1 tablet by mouth in the morning penicillin v potassium (Veetid) 500 MG tablet Indications: Group B streptococcal bacteriuria Take 1 tablet (500 mg) by mouth in the morning and 1 tablet (500 mg) before bedtime. 20 tablet 0 06/24/2023 07/22/2023 Discontinued (Therapy completed) Problems Active Problems Problem Classification Problem Date Documented Date Episodic/Chronic Conduction disorders (1 source) Left bundle branch block; Translations: [Left bundle-branch block, unspecified] Onset: 12-10-2012 12-10-2012 Chronic Joint disorders and dislocations; trauma-related (1 source) Patellofemoral syndrome of left knee; Translations: [Patellofemoral disorders, left knee] Onset: 09-10-2017 09-10-2017 Chronic Other and delivery including normal (2 sources) Second trimester ; Translations: [Encounter for supervision of normal first , second trimester] 08-20-2023 Episodic Other screening for suspected conditions (not mental disorders or infectious disease) (2 sources) Patient encounter status; Translations: [Encounter for other specified screening] 06-24-2023 Episodic Past or Other Problems Problem Classification Problem Date Documented Da te Episodic/Chronic Other circulatory disease (1 source) Elevated blood-pressure reading without diagnosis of hypertension; Translations: [Elevated blood-pressure reading, without diagnosis of hypertension] Onset: 07-03-2021 07-03-2021 Episodic Other non-traumatic joint disorders (1 source) Pain in left knee; Translations: [Pain in joint, lower leg] Onset: 09-10-2017 09-10-2017 Episodic Results Test Name Value Interpretation Reference Range Facility US for pregnancyon Addendum by Terell Welch MD on 07/23/2023 2:10 PM EST ADDENDUM #1 IMPRESSION: EFW 402 g, 67%ile. ELECTRONICALLY SIGNED BY: Terell Welch MD [facility] Single live intrauterine . ELECTRONICALLY SIGNED BY: Terell Welch MD IMAGING EXAMINATION: LIMITED ULTRASOUND UTERUS, 2/3 TRIMESTER REASON [...] measures 21 weeks 1 days. INDIGO 12/01/2023 IMAGING Terell Welch MD - 07/23/2023 EXAMINATION: LIMITED ULTRASOUND UTERUS, 2/3 TRIMESTER REASON [...] . ELECTRONICALLY SIGNED BY: Terell Welch MD [facility] [employer] US for pregnancyOrdered By: Terell Welch on 07-23-2023 [facility] [employer] Work Phone: US OB 14+ WEEKS ANATOMY SCAN on 07-22-2023 US OB 14+ WEEKS ANATOMY SCAN ADDENDUM #1 IMPRESSION: EFW 402 g, 67%ile. ELECTRONICALLY SIGNED BY: Terell eWlch MD EXAMINATION: LIMITED ULTRASOUND UTERUS, 2/3 TRIMESTER [...] BY: Terell Welch MD Normal Not Available US for pregnancyon Radiology Study observation (narrative) [facility] GROUP A STREP MOLECULAR,THRO ATon 09-17-2022 S. pyogenes DNA ABNER+probe Ql (Throat) Not detected Not Detected [facility] Group A Strep Molecular,Thro aton 09-17-2022 Group A Strep Molecular,Throat Not detected Normal NODT [facility] S. pyogenes DNA ABNER+probe Ql (Throat)on 09-17-2022 [facility] Vital Signs Date Time Vital Sign Value Performing Clinician Eugenia mcclelland 08-19-2023 16:02-0500 Body weight 82.56 kg Chayo Naylor [facility] Work Phone: [facility] 08-19-2023 16:02-0500 Diastolic blood pressure 100 mm[Hg] Chayo Naylor [facility] Work Phone: [facility] Comment on above: recheck 122/80 08-19-2023 16:02-0500 Systolic blood pressure 140 mm[Hg] Chayo Floro CNM Work Phone: [facility] Comment on above: recheck 122/80 06-24-2023 16:34-0500 Body weight 77.56 kg Chayo Floro CNM Work Phone: [facility] Encounters Encounter Date Encounter Type Care Provider Facility Start: 08-19-2023 End: 08-20-2023 ambulatory CHAYO L FLORO Not Available Start: 08-19-2023 End: 08-19-2023 Office outpatient visit 15 minutes Chayo L Floro CNM Work Phone: [facility] Comment on above: Encounter for prenat al care of first , second trimester (Primary Dx) Start: 08-19-2023 Bamboo flowsheet Chayo L Matthew ro CNM Work Phone: [facility] Start: 08-19-2023 Bamboo flowsheet Chayo L Matthew ro CNM Work Phone: [facility] Start: 08-01-2023 End: 08-02-2023 ambulatory CHAYO FLORO Not Available Start: 07-22-2023 End: 07-23-2023 ambulatory CHAYO L FLORO Not Available Start: 06-24-2023 End: 06-25-2023 ambulatory CHAYO L FLORO Not Available Start: 06-24-2023 End: 06-24-2023 Office outpatient visit 15 minutes Chayo L Floro CNM Work Phone: [facility] Comment on above: Encounter for anatomic survey Start: 06-24-2023 ambulatory TONI Foster [facility] Start: 05-26-2023 End: 05-27-2023 ambulatory CHAYO L FLORO Not Available Start: 09-16-2022 End: 09-17-2022 ambulatory TONI Foster [facility] Start: 09-16-2022 End: 09-16-2022 Subsequent hospital visit by physician Toni Hermosillo MD Work Phone: [facility] Procedures Date Procedure Procedure Detail Performing Clinician Start: 09-16-2022 Streptococcus pyogen es DNA [Presence] in Throat by ABNER with probe detection Toni Hermosillo MD Work Phone: Plan of Treatment Date Care Activity Detail Author Start: 09-17-2023 End: 09-17-2023 Patient encounter procedure 09/17/2023 2:30 PM EDT Routine [facility] [address] [place] [address] Chayo Naylor, CNM [address] [place], [place] [id number] [facility] Start: 08-19-2023 End: 08-19-2023 Patient encounter procedure [facility] Comment on above: Arrived Start: 06-24-2023 End: 06-24-2023 Patient encounter procedure Cardiology Non-invasive [facility] Start: 03-07-2022 Influenza vaccination INFLUENZ A VACCINE (#1) [facility] Start: 2012 MENB (1 of 2 - Risk Bexsero 2-dose series) MENB (1 of 2 - Risk Bexsero 2-dose series) [facility] Start: 2011 HPV VACCINES (1 - 2- dose series) HPV VACCINES (1 - 2-dose series) [facility] Start: 2009 DTaP/Tdap/Td VACCINE S (1 - Tdap) DTaP/Tdap/Td VACCINES (1 - Tdap) [facility] Start: 2003 MMR VACCINES (1 of 1 - Standard series) MMR VACCINES (1 of 1 - Standard series) [facility] Start: 2003 VARICELLA VACCINES ( 1 of 2 - 2-dose childhood series) VARICELLA VACCINES (1 of 2 - 2-dose childhood series) [facility] Start: 02-02-2003 COVID-19 Vaccine (#1) COVID-19 Vacci ne (#1) [facility] Start: 2002 HEPATITIS B VACCINES (1 of 3 - 3-dose series) HEPATITIS B VACCINES (1 of 3 - 3-dose series) [facility] Payers Date Payer Category Payer Medicaid [id number] 2021 Unknown [id number] 2002 Unknown [id number] 2.16. [id number] 2002 Unknown [id number] 2.16. [id number] 2002 Unknown [id number] 2.16. [id number] 2002 Unknown [id number] 2.16.84 [id number] 2002 Unknown [id number] 2.16.84 [id number] 2002 Unknown [id number] 2.16.84 [id number] 2002 Unknown [id number] 2.16.84 [id number] 2002 Unknown [id number] Social History Date Type Detail Facility Start: 04-01-2017 End: 04-24-2023 Tobacco smoking status IAIS Never smoked tobacco [facility] Start: 04-01-2017 End: 04-24-2023 Tobacco use and exposure Smokeless tobacco non-user [facility] Start: 07-03-2021 [facility] intake Not [facility] Start: 2000 [facility] Start: 04-24-2023 Alcohol intake Lifetime non-d dilshad (finding) [facility] Start: 04-24-2023 History of Social function [facility] Start: 04-24-2023 Tobacco use panel [facility] Start: 03-13-2023 [facility] History of Present illness Narrative 08-19-2023 Chayo Naylor CNM - 08/19/2023 4:00 PM EST Note Date & Type Note Facility 08-19-2023 History of Presen t illness Narrative Subjective No chief complaint on file. Mary Snyder is a 23 y.o. at 24w5d with a working estimated date of delivery of 12/04/2023, by Last Menstrual Period who presents for a routine visit. She denies vaginal bleeding, leakage of fluid, decreased movements, or contractions. Her is complicated by: The following portions of the chart were reviewed this encounter and updated as appropriate: Objective Physical Exam weight: 182 lb Expected Total Weight Gain: Could not be calculated Pregravid BMI: Could not be calculated BP: (!) 140/100 Repeat BP 122/80 after resting Urine glucose-negative,protein-negative Labs Imaging Assessment/Plan Diagnoses and all orders for this visit: Encounter for care of first , second trimester Continue vitamin. Labs reviewed. Rhogam not needed, + blood type GTT T 28 WEEKS Follow up in 4 weeks for a routine visit. documented in this encounter [facility] History of Present illness Narrative 06-24-2023 Amy Muñoz MA - 06/24/2023 4:30 PM EST Note Date & Type Note Facility 06-24-2023 History of Presen t illness Narrative ,Subjective No chief complaint on file. Mary Snyder is a 22 y.o. at 16w5d with a working estimated date of delivery of 12/04/2023, by Last Menstrual Period who presents for a routine visit. She denies vaginal bleeding, leakage of fluid, decreased movements, or contractions. Her is complicated by: The following portions of the chart were reviewed this encounter and updated as appropriate: @RULESMARTLINK([id number],TOBYESPROV)@@ RULESMARTLINK([id number],ALGYESPROV)@@R MICHI ARTLINK([id number],MEDYESPROV)@@RULESMA RTLINK([id number],PROBYESPROV)@@RULESMORIAH RTLIN K([id number],MHYESPROV)@@[employer]( [id number],SHYESPROV)@@[employer]([id number], FHYESPROV)@@[employer]([id number],SO HYESPROV)@ Objective Physical Exam Expected Total Weight Gain: Could not be calculated Pregravid BMI: Could not be calculated Urine glucose-negative,protein-negative Labs No results found for: HGB , HCT , LABPLAT , ABO , LABRHF , LABANTI , LABRPR , HEPBSAG , HIVAB , RUBELLAIGGQT No results found for: PAPPA , AFP , HCG , ESTRIOL , INHBA No results found for: GLUF , GLUT1 , OYPRXPQ5NH , NBVRLRN8SH Imaging Assessment/Plan Continue vitamin. Labs reviewed. Rhogam GTT . Follow up in 2 weeks for a routine visit. documented in this encounter [facility] Evaluation note Note Date & Type Note Facility Evaluation note Diagnosis Encounter for anatomic survey Encounter for anatomic survey documented in this encounter [facility] Evaluation note Note Date & Type Note Facility Evaluation note Diagnosis Encounter for care of first , second trimester- Primary documented in this encounter [facility] Summary Purpose Family History No Family History Records FoundNo Family History Records Found Advance Directives No Advanced Directives Records FoundNo Advanced Directives Records Found Additional Source Comments Care Teams (unrecognized sec tion and content) Multimedia Services Manager Relationship Specialty Start Date End Date Toni Hermosillo MD [address] [facility] [place] [id number] PCP - General 04/24/06 INFORMATION SOURCE (unrecogn ized section and content) DATE CREATED AUTHOR 07/02/2023 [facility] DATE CREATED AUTHOR AUTHOR'S ORGANIZ ATION 08/24/2023 [facility] FOR RECORDS PERTAINING TO PATIENTS WHO ARE [...] BE BASED ON THE PRIMARY CLINICAL RECORDS. [facility]. provides no warranty or guarantee of the accuracy or completeness of information in this document.
[2023-09-26 15:32] VITALS: RESP 18; TEMP 36.3
[2023-09-26 16:33] LABS: Bilirubin Urine NEGATIVE (NEGATIVE); Blood Urine NEGATIVE (NEGATIVE); Clarity Urine CLEAR (CLEAR); Color Urine YELLOW (YELLOW); Glucose Urine UA NEGATIVE (NEGATIVE); Ketones Urine 15 mg/dL (NEGATIVE); Leukocyte Esterase Urine NEGATIVE (NEGATIVE); Nitrite Urine NEGATIVE (NEGATIVE); Protein Urine NEGATIVE (NEG/TRACE); Specific Gravity Urine 1.015 (1.005-1.025); Urobilinogen Urine 0.2 EU/dL (0.2-1.0); pH Urine 6.5 (5.0-9.0)
[2023-09-26 16:36] LABS: Urine Microscopic Indicated NO
--- NOTE | 2023-09-26 17:09 | US_ITS ---
[address] [address] Patient Name: MARY GAMEZ MRN: [id number] date: 2000 Sex: F Assigned Patient Location: [facility] Current Patient Location: Accession/Order Number: [id number] Exam Date: 09/26/2023 19:15 Report Date: 09/29/2023 07:24 At the request of: MELYSSA DYE Procedure: US OB cervical length EXAMINATION: US OB BPP w non-stress, US OB cervical length HISTORY: LGA COMPARISON: No relevant comparison available. TECHNIQUE: Ultrasound biophysical profile was performed in the radiology department. FINDINGS: BREATHING MOVEMENTS: 0.0 GROSS BODY MOVEMENTS: 2.0 TONE: 2.0 QUALITATIVE AMNIOTIC FLUID VOLUME: 2.0 PRESENTATION: BREECH HEART RATE: 161.7 bpm H.B./min AMNIOTIC FLUID VOLUME: 18.2 cm cm GESTATIONAL AGE: 30 weeks 4 days Placental tip to internal os: 6.2 cm Cervix: 5.0 cm, closed CONCLUSION: Total biophysical profile score: 6.0 Closed cervix measuring 5.0 cm Electronically authenticated by: ANA PEREA Date: 09/29/2023 07:24
--- NOTE | 2023-09-26 17:10 | US_ITS ---
[address] [address] Patient Name: MARY GAMEZ MRN: [id number] date: 2000 Sex: F Assigned Patient Location: [facility] Current Patient Location: Accession/Order Number: [id number] Exam Date: 09/26/2023 19:15 Report Date: 09/29/2023 07:24 At the request of: MELYSSA DYE Procedure: US OB BPP w non-stress EXAMINATION: US OB BPP w non-stress, US OB cervical length HISTORY: LGA COMPARISON: No relevant comparison available. TECHNIQUE: Ultrasound biophysical profile was performed in the radiology department. FINDINGS: BREATHING MOVEMENTS: 0.0 GROSS BODY MOVEMENTS: 2.0 TONE: 2.0 QUALITATIVE AMNIOTIC FLUID VOLUME: 2.0 PRESENTATION: BREECH HEART RATE: 161.7 bpm H.B./min AMNIOTIC FLUID VOLUME: 18.2 cm cm GESTATIONAL AGE: 30 weeks 4 days Placental tip to internal os: 6.2 cm Cervix: 5.0 cm, closed CONCLUSION: Total biophysical profile score: 6.0 Closed cervix measuring 5.0 cm Electronically authenticated by: ANA PEREA Date: 09/29/2023 07:24
--- NOTE | 2023-09-26 17:15 | PC.NURSE ---
1630: LAB CALLED AWAITING STAT URINE RESULTS. 1650 : DR DYE CALLED WITH PATIENT COMPLAINTS AND URINE RESULTS- ORDERS RECEIVED AND ASKED TO REVIEW WITH PATIENT PLAN OF CARE. PATIENT AGREEABLE TO ORDERS AND PLAN OF CARE-DR DYE NOTIFIED OF PATIENT COMPLIANCE WITH ORDERS.
[2023-09-26] MEDS: LACTATED RINGER'S SOLUTION 1,000 ML 1000 ML IV ×2 (17:30→20:13)
[2023-09-26] MEDS: TERBUTALINE SULFATE 1 MG/ML VIAL 0.25 MG SUBQ (17:36)
[2023-09-26 17:37] VITALS: BP 113/65; PULSE 69
[2023-09-26 17:38] LABS: Amphetamine Screen Urine NEGATIVE (NEGATIVE); Benzodiazepines Screen Urine NEGATIVE (NEGATIVE); Cannabinoid Screen Urine NEGATIVE (NEGATIVE); Cocaine Screen Urine NEGATIVE (NEGATIVE); Methadone Screen Urine NEGATIVE (NEGATIVE); Methamphetamines Screen Urine NEGATIVE (NEGATIVE); Opiate Screen Urine NEGATIVE (NEGATIVE); Phencyclidine Screen Urine NEGATIVE (NEGATIVE); Tricyclic Antidepressant Urine NEGATIVE (NEGATIVE)
[2023-09-26 17:38] LABS: Basophils Percent Auto 0.3 % (0.2-2.0); Eosinophils Absolute Auto 0.1 10^3/uL (0.0-0.7); Eosinophils Percent Auto 0.6 % (0.9-7.0); Hematocrit 41.2 % (36.0-48.0); Hemoglobin 13.1 g/dL (12.0-16.0); Immature Granulocytes Abs Auto 0.15 10^3/uL (0.00-0.03); Immature Granulocytes Pct Auto 1.1 % (0.0-0.5); Lymphocytes Absolute Auto 2.7 10^3/uL (1.2-3.8); Lymphocytes Percent Auto 19.2 % (20.5-60.0); Mean Corpuscular HGB Conc 31.8 g/dL (29.9-35.2); Mean Corpuscular Hemoglobin 29.6 pg (26.7-34.0); Mean Platelet Volume 11.5 fL (9.5-13.5); Monocytes Absolute Auto 0.8 10^3/uL (0.3-0.8); Monocytes Percent Auto 5.9 % (1.7-12.0); Neutrophils Absolute Auto 10.2 10^3/uL (1.4-6.5); Neutrophils Percent Auto 72.9 % (43.0-75.0); Platelet Count 162 10^3/uL (150-450); Red Blood Count 4.43 10^6/uL (4.20-5.40); White Blood Count 13.9 10^3/uL (4.0-11.0)
[2023-09-26 17:39] LABS: Barbiturates Screen Urine NEGATIVE (NEGATIVE); Buprenorphine Screen Urine NEGATIVE (NEGATIVE); Oxycodone Screen Urine NEGATIVE (NEGATIVE)
--- NOTE | 2023-09-26 17:39 | PC.NURSE ---
1736: terbutaline 0.25 mg sq as ordered
[2023-09-26 17:51] LABS: Alanine Aminotransferase 11 U/L (14-59); Albumin Globulin Ratio 0.8; Albumin Level 3.3 g/dL (3.4-5.0); Alkaline Phosphatase 110 U/L (46-116); Anion Gap 13.8; Aspartate Amino Transferase 14 U/L (15-37); BUN Creatinine Ratio 11.3; Bilirubin Total 0.2 mg/dL (0.2-1.0); Calcium 9.1 mg/dL (8.5-10.1); Carbon Dioxide 22.9 mmol/L (21.0-32.0); Chloride 102 mmol/L (98-107); Estimated GFR (African America >60 (>=60); Estimated GFR (Non-African Ame >60 (>=60); Globulin 4.1 g/dL; Glucose 81 mg/dL (74-106); Potassium 3.7 mmol/L (3.5-5.1); Sodium 135 mmol/L (136-145); Total Protein 7.4 g/dL (6.4-8.2)
== END 2023-09-26 20:35 | disposition home or self-care (01) ==
PROVIDERS: Admitting Provider Obstetrics & Gynecology; Visit Provider Obstetrics & Gynecology
DX: O26.893 Other specified pregnancy related conditions, third trimester (principal); M54.9 Dorsalgia, unspecified; R10.9 Unspecified abdominal pain; Z3A.30 30 weeks gestation of pregnancy
CPT/HCPCS: 36415; 76817; 76818; 80053; 80307; 81003; 85025; 96372; G0378; G0379

== ENCOUNTER 2023-10-28 09:00 | Observation (INO) | payer OTHER, SELFPAY ==
[2023-10-28 09:15] VITALS: BP 133/73; PULSE 80
[2023-10-28 12:29] LABS: Bilirubin Urine NEGATIVE (NEGATIVE); Blood Urine NEGATIVE (NEGATIVE); Clarity Urine CLEAR (CLEAR); Color Urine LT. YELLOW (YELLOW); Glucose Urine UA NEGATIVE (NEGATIVE); Ketones Urine NEGATIVE (NEGATIVE); Leukocyte Esterase Urine NEGATIVE (NEGATIVE); Nitrite Urine NEGATIVE (NEGATIVE); Protein Urine NEGATIVE (NEG/TRACE); Urobilinogen Urine 0.2 EU/dL (0.2-1.0); pH Urine 7.5 (5.0-9.0)
[2023-10-28 12:32] LABS: Urine Microscopic Indicated NO
== END 2023-10-28 12:30 | disposition home or self-care (01) ==
PROVIDERS: Admitting Provider Midwife; Visit Provider Midwife
DX: O47.03 False labor before 37 completed weeks of gestation, third trimester (principal); Z3A.34 34 weeks gestation of pregnancy
CPT/HCPCS: 59025; 81003; G0378; G0379

== ENCOUNTER 2024-07-18 14:51 | Emergency (ER) | payer OTHER, SELFPAY ==
[2024-07-18 14:57] VITALS: BP 127/72; PULSE 89; TEMP 36.3; O2SAT 100; BMI 31.1
--- OUTSIDE RECORDS SUMMARY | 2024-07-18 14:57 | XMS_ITS | CCD ---
Author Organization [facility] Care Team Providers Care Assistant Softball Coach Name Role Phone Toni Hermosillo MD Primary Care Provider TONI HERMOSILLO Attending Unavailable TONI HERMOSILLO Primary Care Unavailable TONI HERMOSILLO Primary Care Unavailable RUTH AGUILAR Attending Unavailable TONI HERMOSILLO Primary Care Unavailable Unavailable Primary Care Provider Unavailyelena e BENJAMIN SANDHU Admitting Unavailable BENJAMIN SANDHU Attending Unavailable ANA DODGE Attending Unavailable De Jesus COLD HEADER OPERATOR-[facility], Kaci Primary Care Provider RAIMUNDO DE JESUSNDRA Attending Unavailable DE JESUS, KACI Primary Care Unavailable DE JESUS KACI Attending Unavailable DE JESUS, KACI Referring Unavailable DE JESUS, KACI Primary Care Unavailable FLORO, CHAYO L Referring Unavailable FLORO, CHAYO L Attending Unavailable FLORO, CHAYO L Attending Unavailable FLORO, CHAYO L Attending Unavailable FLORO, CHAYO L Attending Unavailable FLORO, CHAYO L Attending Unavailable FLORO, CHAYO L Attending Unavailable FLORO, CHAYO L Attending Unavailable FLORO, CHAYO L Referring Unavailable FLORO, CHAYO L Attending Unavailable FLORO, CHAYO L Referring Unavailable Allergies Allergy Classification Reported Allergen(s) Allergy Type Date of Onset Reaction(s) Facility (14 sources) Sulfonamides (Antibiotic) Propensity to adverse reactions 3 [facility] (2 sources) Sulfonamides (Antibiotic); Translations: [SULFA (SULFONAMIDE ANTIBIOTICS)] Propensity to adverse reactions to drug (disorder) 4 [facility] Medications Current Medications Medication Drug Class(es) Dates Sig (Normalized) Sig (Original) MV-Min-Fe Fum-FA-DHA ( 1 PO) (12 sources) MV-Min- Fe Fum-FA-DHA ( 1 PO) Take by mouth. Active MV-Min- Fe Fum-FA-DHA ( 1 PO) Take by mouth. 0 Active no115/iron/folic ac id ( 19 ORAL) (2 sources) no115/i stephane/folic acid ( 19 ORAL) Take by mouth. Active Completed/Discontinued Medications Medication Drug Class(es) Dates [...] Problem Classification Problem Date Documented Date Episodic/Chronic Administrative/social admission (1 source) First encounter by subject; Translations: [Persons encountering health services in other specified circumstances] 04-13-2024 Episodic Conduction disorders (2 sources) Left bundle branch block; Translations: [Left bundle-branch block, unspecified] Onset: 12-10-2012 12-10-2012 Chronic Immunizations and screening for infectious disease (2 sources) Requires tetanus and diphtheria vaccination; Translations: [Encounter for immunization] Onset: 04-28-2024 04-28-2024 Episodic Joint disorders and dislocations; trauma-related (1 source) Patellofemoral syndrome of left knee; Translations: [Patellofemoral disorders, left knee] Onset: 09-10-2017 09-10-2017 Chronic Menstrual disorders (2 sources) Amenorrhea; Translations: [Amenorrhea, unspecified] 05-13-2024 Chronic Other female genital disorders (1 source) Vaginal bleeding Onset: 11-29-2023 Chronic Other and delivery including normal (10 sources) Second trimester ; Translations: [Encounter for supervision of normal first , second trimester] 08-20-2023 Episodic Other screening for suspected conditions (not mental disorders or infectious disease) (2 sources) Patient encounter status; Translations: [Encounter for other specified screening] 06-24-2023 Episodic Unclassified (1 source) Establish Care Onset: 04-13-2024 Past or Other Problems Problem Classification Problem Date Documented Da te Episodic/Chronic Mood disorders (2 sources) Mood disorders Onset: 04-13-2024 04-13-2024 OB-related trauma to perineum and vulva (3 sources) Perineal laceration during delivery, unspecified; Translations: [Perineal laceration during delivery] Onset: 11-29-2023 11-29-2023 Episodic Other circulatory disease (1 source) Elevated blood-pressure reading without diagnosis of hypertension; Translations: [Elevated blood-pressure reading, without diagnosis of hypertension] Onset: 07-03-2021 07-03-2021 Episodic Other non-traumatic joint disorders (1 source) Pain in left knee; Translations: [Pain in joint, lower leg] Onset: 09-10-2017 09-10-2017 Episodic Results Test Name Value Interpretation Reference Range Facility CBC panel Auto (Bld)on 06-16 Erythrocyte distribution width (RBC) [Ratio] 14.5 % 11.0 - 15.0 % [facility] Hematocrit (Bld) [Volume fraction] 38.9 % 35.0 - 45.0 % [facility] Hemoglobin (Bld) [Mass/Vol] 13.2 g/dL 11.7 - 15.5 g/dL [facility] MCH (RBC) [Entitic mass] 28.6 pg 27.0 - 33.0 pg [facility] MCHC (RBC) [Mass/Vol] 33.9 g/dL 32.0 - 36.0 g/dL [facility] Comment on above: For adults, a slight decrease in the calculated MCHC value (in the range of 30 to 32 g/dL) is most likely not clinically significant; however, it should be interpreted with caution in correlation with other red cell parameters and the patient's clinical condition. MCV (RBC) [Entitic vol] 84.4 fL 80.0 - 100.0 fL [facility] Platelet mean volume (Bld) [Entitic vol] 11.4 fL 7.5 - 12.5 fL [facility] Platelets (Bld) [#/Vol] 213 10*3/uL [facility] RBC (Bld) [#/Vol] 4.61 10*6/uL [facility] WBC (Bld) [#/Vol] 7.3 10*3/uL [facility] Laboratory - Blood bankon 12 -11-2024 ABO group Nom (Bld) O [facility] Blood group antibody screen Ql Detected [facility] Comment on above: Reference range No antibodies detected This assay is a screening test for the detection of red blood cell antibodies. The test is not to be used for pretransfusion screening or for the medical management of an alloimmunized . Rh Nom (Bld) Positive [facility] Comment on above: For additional information, please refer to http://Clean Plates.Sabrix/faq/BSX717 (This link is being provided for informational/ educational purposes only.) Laboratory - Chemistry and C hemistry - challengeon 06-16-2024 TSH Qn 1.29 m[IU]/L mIU/L [facility] Comment on above: Reference Range > or = 20 Years 0.40-4.50 Ranges First trimester 0.26-2.66 Second trimester 0.55-2.73 Third trimester 0.43-2.91 Laboratory - Hematology and Cell countson 06-16-2024 HbA1c (Bld) [Mass fraction] 5.5 % NINF [facility] Comment on above: For the purpose of s creening for the presence of diabetes: <5.7% Consistent with the absence of diabetes 5.7-6.4% Consistent with increased risk for diabetes (prediabetes) > or =6.5% Consistent with diabetes This assay result is consistent with a decreased risk of diabetes. Currently, no consensus exists regarding use of hemoglobin A1c for diagnosis of diabetes in children. According to [place] Diabetes Association (ADA) guidelines, hemoglobin A1c <7.0% represents optimal control in non- diabetic patients. Different metrics may apply to specific patient populations. Standards of Medical Care in Diabetes(ADA). Laboratory - Microbiology an d Antimicrobial susceptibilityon 06-16-2024 HBV surface Ag IA Ql Non-Reactive NON-REACTIVE [facility] Comment on above: For additional information, please refer to http://education.[employer]/faq/KXU068 (This link is being provided for informational/ educational purposes only.) HCV Ab IA Ql Non-Reactive NON-REACTIVE [facility] Comment on above: HCV antibody was non-reactive. There is no laboratory evidence of HCV infection. In most cases, no further action is required. However, if recent HCV exposure is suspected, a test for HCV RNA (test code 25893) is suggested. For additional information please refer to http://Clean Plates.[employer]/faq/YUU86d9 (This link is being provided for informational/ educational purposes only.) HIV 1+2 Ab+HIV1 p24 Ag IA Ql Non-Reactive NON-REACTIVE [facility] Comment on above: HIV-1 antigen and HI V-1/HIV-2 antibodies were not detected. There is no laboratory evidence of HIV infection. PLEASE NOTE: This information has been disclosed to you from records whose confidentiality may be protected by state law. If your state requires such protection, then the state law prohibits you from making any further disclosure of the information without the specific written consent of the person to whom it pertains, or as otherwise permitted by law. A general authorization for the release of medical or other information is NOT sufficient for this purpose. For additional information please refer to http://Clean Plates.[employer]/faq/CKW946 (This link is being provided for informational/ educational purposes only.) The performance of this assay has not been clinically validated in patients less than 2 years old. Reagin Ab RPR Ql (S) Non-Reactive NON-REACTIVE [facility] Rubella virus IgG Qn (S) 5.76 [IU]/mL Index [facility] Comment on above: Index Interpretation ----- <0.90 Not consistent with immunity 0.90-0.99 Equivocal > or = 1.00 Consistent with immunity The presence of rubella IgG antibody suggests immunization or past or current infection with rubella virus. No Panel Informationon 06-16 MULTIPLE COLLECTION TIMES FOR SAME TEST TYPE. [facility] Organization Information Site ID: QPT Name: [facility] Address: [address] [place] [address], [address] [place] [id number] Director: Ambrose Orellana MD [facility] HCG ( test) Ql (U)o n 05-13-2024 Interpretation and review of laboratory results Abnormal [facility] Preg Test, Ur Positive Negative [facility] US OB < 14 WEEKS EARLYon US OB < 14 WEEKS EARLY TITLE OF EXAM: OB Ultrasound: REASON FOR EXAM: Confirm dates, amenorrhea. TECHNIQUE: Grayscale imaging is performed. Measurements: heart rate: 156 bpm Sac: 2.7 cm CRL: 1.6 cm GA for sonogram: 8.0 wk (07.4-08.6) Cervix Length: 2.8 cm INDIGO: 12/25/2024 CLINICAL SUMMARY: Endovaginal exam was performed. Early intrauterine is seen with positive cardiac activity. Yolk sac is identified and within normal limits. heart is observed with a heart rate of 156. Uterus and adnexae: Corpus luteum on right ovary measuring 2.8 x 2.7 x 2.7 cm. Limited study. Full anatomical survey not performed. IMPRESSION: Early IUP age 7.7 weeks from LMP. Right corpus luteum. Dictated and transcribed 05/13/24/dpd This report has been electronically signed and approved by the interpreting radiologist. Normal Not Available US RUQon 02-11-2024 US RUQ EXAM: Abdominal Ultrasound, Limited: REASON FOR EXAM: Abdominal pain. COMPARISON: None. TECHNIQUE: Grayscale imaging with color flow Doppler and spectral analysis performed. FINDINGS: The gallbladder is present. It contains no stones. Its wall is not thickened. No pericholecystic fluid formation. The common bile duct is of appropriate caliber. Right renal morphology and echotexture unremarkable. What is seen of the liver and pancreas is unremarkable. Appropriate hepatopetal blood flow in the main portal vein. Negative for ascites. Measurements: CBD: 0.24 cm GB wall: 0.20 cm Right kidney: 11.56 x 4.53 x 4.53 cm Liver: 15.71 cm IMPRESSION: Negative limited upper abdominal ultrasonographic evaluation. *This report is generated using voice recognition reporting ([employer]). On occasion [employer] erroneously drops words from the report or replaces the spoken word with similar sounding words. Please call with any questions/concerns regarding this report.* Dictated and transcribed 02/11/2024/to This report has been electronically signed and approved by the interpreting radiologist. Electronically Signed Kane Proctor M.D. 2024-02-11 16:48:20 Normal Not Available CBC AND AUTO DIFFon 11-29-19 ABSOLUTE BASOPHIL 0.1 X10E9/L [facility]0-0.2 [facility] Comment on above: Performed By: #### C BCA #### [facility] ([id number]) [address] [place] [address] ABSOLUTE NEUTROPHIL 18.3 X10E9/L High 1.5-6.6 [facility] Comment on above: Performed By: #### C BCA #### [facility] ([id number]) [address] [place] [address]12 Basophils/100 WBC (Bld) 0.3 % Normal [facility] Comment on above: Performed By: #### C BCA #### [facility] ([id number]) [address] [place] [address]34 Eosinophils (Bld) [#/Vol] 0.0 10*3/uL Normal 0.0-0.4 [facility] Comment on above: Performed By: #### C BCA #### [facility] ([id number]) [address] [place] [address]67 Eosinophils/100 WBC (Bld) 0.0 % Normal [facility] Comment on above: Performed By: #### C BCA #### [facility] ([id number]) [address] [place] [address] Erythrocyte distribution width (RBC) [Ratio] 14.8 % Normal 11.5-15.0 [facility] Comment on above: Performed By: #### C BCA #### [facility] ([id number]) [address] [place] [address] Hematocrit (Bld) [Volume fraction] 37.2 % Normal 35-47 [facility] Comment on above: Performed By: #### C BCA #### [facility] ([id number]) [address] [place] [address]59 Hemoglobin (Bld) [Mass/Vol] 12.7 g/dL Normal 11.7-15.5 [facility] Comment on above: Performed By: #### C BCA #### [facility] ([id number]) [address] [place] [address]2515 Lymphocytes (Bld) [#/Vol] 1.1 10*3/uL Normal 1.0-3.5 [facility] Comment on above: Performed By: #### C BCA #### [facility] ([id number]) [address] [place] [address]016 Lymphocytes/100 WBC (Bld) 5.5 % Normal [facility] Comment on above: Performed By: #### C BCA #### [facility] ([id number]) [address] [place] [address] 77217 MCH (RBC) [Entitic mass] 29.9 pg Normal 27-34 [facility] Comment on above: Performed By: #### C BCA #### [facility] ([id number]) [address] [place] [address] 13501 MCHC (RBC) [Mass/Vol] 34.0 g/dL Normal 32-36 [facility] Comment on above: Performed By: #### C BCA #### [facility] ([id number]) [address] [place] [address]342 MCV (RBC) [Entitic vol] 88 fL Normal 80-100 [facility] Comment on above: Performed By: #### C BCA #### [facility] ([id number]) [address] [place] [address] 07503 Monocytes (Bld) [#/Vol] 1.1 10*3/uL High 0-0.9 [facility] Comment on above: Performed By: #### C BCA #### [facility] ([id number]) [address] [place] [address] 41429 Monocytes/100 WBC (Bld) 5.1 % Normal [facility] Comment on above: Performed By: #### C BCA #### [facility] ([id number]) [address] [place] [address]0470 Neutrophils/100 WBC (Bld) 89.1 % Normal [facility] Comment on above: Performed By: #### C BCA #### [facility] ([id number]) [address] [place] [address]14 Platelet mean volume (Bld) [Entitic vol] 9.6 fL Normal 7-12 [facility] Comment on above: Performed By: #### C BCA #### [facility] ([id number]) [address] [place] [address] 54174 Platelets (Bld) [#/Vol] 186 10*3/uL Normal 150-450 [facility] Comment on above: Performed By: #### C BCA #### [facility] ([id number]) [address] [place] [address] 26419 RBC COUNT 4.23 X10E12/L Normal 3.80-5.20 [facility] Comment on above: Performed By: #### C BCA #### [facility] ([id number]) [address] [place] [address]0783 WBC (Bld) [#/Vol] 20.6 10*3/uL High 4.0-11.0 [facility] Comment on above: Performed By: #### C BCA #### [facility] ([id number]) [address] [place] [address] US for pregnancyon Addendum by Terell Welch MD on 07/23/2023 2:10 PM EST ADDENDUM #1 IMPRESSION: EFW 402 g, 67%ile. ELECTRONICALLY SIGNED BY: Terell Welch MD [facility] Single live intrauterine . ELECTRONICALLY SIGNED BY: [...] . ELECTRONICALLY SIGNED BY: Terell Welch MD [facility] US for pregnancyOrdered By: Terell Welch on 07-23-2023 [facility] Work Phone: US OB 14+ WEEKS ANATOMY [...] US for pregnancyon Radiology Study observation (narrative) [facility] GROUP A STREP MOLECULAR,THRO ATon 09-17-2022 S. pyogenes DNA ABNER+probe Ql (Throat) Not detected Not Detected [facility] Group A Strep Molecular,Thro aton 09-17-2022 Group A Strep Molecular,Throat Not detected Normal NODT [facility] S. pyogenes DNA ABNER+probe Ql (Throat)on 09-17-2022 [facility] Vital Signs Date Time Vital Sign Value Performing Clinician Facility 06-02-2024 09:10-0500 Body mass index (BMI) [Ratio] 31.46 kg/m2 Chayo Farheeno CNM Work Phone: [facility] 06-02-2024 09:10-0500 Body weight 78.02 kg Chayo Farheeno CNM Work Phone: [facility] 06-02-2024 09:10-0500 Diastolic blood pressure 80 mm[Hg] Chayo Farheeno CNM Work Phone: [facility] 06-02-2024 09:10-0500 Systolic blood pressure 120 mm[Hg] Chayo Farheeno CNM Work Phone: [facility] 05-13-2024 10:25-0500 Body mass index (BMI) [Ratio] 31.83 kg/m2 [facility] Work Phone: [facility] 05-13-2024 10:25-0500 Body weight 78.93 kg Chayo Farheeno CNM Work Phone: [facility] 05-13-2024 09:49-0500 Body height 157.5 cm Chayo Farheeno CNM Work Phone: [facility] 04-13-2024 09:59-0400 Body mass index (BMI) [Ratio] 31.79 kg/m2 Kaci De Jesus COLD HEADER OPERATOR-CAUSTIC OPERATOR Work Phone: [facility] 04-13-2024 09:59-0400 Body temperature 98.1 [degF] Kaci De Jesus COLD HEADER OPERATOR-CAUSTIC OPERATOR Work Phone: [facility] 04-13-2024 09:59-0400 Body weight 78.83 kg Kaci De Jesus COLD HEADER OPERATOR-CAUSTIC OPERATOR Work Phone: [facility] 04-13-2024 09:59-0400 Diastolic blood pressure 74 mm[Hg] Kaci De Jesus COLD HEADER OPERATOR-CAUSTIC OPERATOR Work Phone: [facility] 04-13-2024 09:59-0400 Heart rate 74 /min Kaci De Jesus COLD HEADER OPERATOR-CAUSTIC OPERATOR Work Phone: [facility] 04-13-2024 09:59-0400 SaO2% (BldA) [Mass fraction] 97 % Kaci De Jesus COLD HEADER OPERATOR-CAUSTIC OPERATOR Work Phone: [facility] 04-13-2024 09:59-0400 Systolic blood pressure 118 mm[Hg] Kaci De Jesus COLD HEADER OPERATOR-CAUSTIC OPERATOR Work Phone: [facility] 08-19-2023 16:02-0500 Body weight 82.56 kg Chayo Farheeno CNM Work Phone: [facility] 08-19-2023 16:02-0500 Diastolic blood pressure 100 mm[Hg] Chayo Floro CNM Work Phone: [facility] Comment on above: recheck 122/80 08-19-2023 16:02-0500 Systolic blood pressure 140 mm[Hg] Chayo Floro CNM Work Phone: [facility] Comment on above: recheck 122/80 06-24-2023 16:34-0500 Body weight 77.56 kg Chayo Floro CNM Work Phone: [facility] Encounters Encounter Date Encounter Type Care Provider Facility Start: 07-14-2024 End: 07-14-2024 Bamboo flowsheet Chayo L Floro CNM Work Phone: [facility] Start: 07-14-2024 End: 07-14-2024 Bamboo flowsheet Chaoy L Floro CNM Work Phone: [facility] Start: 07-08-2024 End: 07-08-2024 Telephone encounter Chayo Christiana Floro CNM Work Phone: [facility] Start: 06-01-2024 End: 06-01-2024 Office outpatient visit 15 minutes Chayo Zhongo CNM Work Phone: [facility] Comment on above: Encounter for superv ision of other normal , second trimester (Primary Dx); examination or test, positive result Start: 05-13-2024 End: 05-13-2024 Bamboo flowsheet Chayo Zhongo CNM Work Phone: [facility] Start: 05-13-2024 End: 05-13-2024 Bamboo flowsheet Chayoleigha Zhongo CNM Work Phone: [facility] Start: 05-13-2024 End: 05-13-2024 ambulatory CHAYO L FLORO Not Available Start: 05-13-2024 End: 05-13-2024 Subsequent care visit Chayo Zhongo CNM Work Phone: [facility] Comment on above: GA: 7w5d Start: 04-28-2024 End: 04-28-2024 Clinical Support Kaci De Jesus APRN-JESUS Work Phone: [facility] Comment on above: Need for prophylacti c vaccination against diphtheria and tetanus (Primary Dx) Start: 04-13-2024 End: 04-13-2024 Office outpatient new 30 minutes Kaci De Jesus APRN-CAUSTIC OPERATOR Work Phone: [facility] Comment on above: LBBB (left bundle br anch block) (Primary Dx); Encounter to establish care Start: 04-13-2024 End: 04-13-2024 ambulatory [facility] Start: 02-11-2024 End: 02-11-2024 ambulatory CHAYO L FLORO Not Available Start: 02-03-2024 End: 02-03-2024 ambulatory CHAYO L FLORO Not Available Start: 01-13-2024 End: 01-13-2024 ambulatory CHAYO L FLORO Not Available Start: 12-10-2023 End: 12-10-2023 ambulatory CHAYO L FLORO Not Available Start: 11-30-2023 End: 11-30-2023 ambulatory ANA DODGE [facility] Start: 11-29-2023 End: 11-30-2023 ambulatory BENJAMIN SANDHU [facility] Start: 08-19-2023 End: 08-19-2023 Office outpatient visit 15 minutes Chayo L Floro CNM Work Phone: [facility] Comment on above: Encounter for prenat al care of first , second trimester (Primary Dx) Start: 08-19-2023 End: 08-19-2023 ambulatory CHAYO L FLORO Not Available Start: 08-19-2023 Bamboo flowsheet Chayo L Matthew ro CNM Work Phone: [facility] Start: 08-19-2023 Bamboo flowsheet Chayo L Matthew ro CNM Work Phone: [facility] Start: 08-01-2023 End: 08-01-2023 ambulatory CHAYO FLORO Not Available Start: 07-22-2023 End: 07-22-2023 ambulatory CHAYO L FLORO Not Available Start: 06-24-2023 End: 06-24-2023 Office outpatient visit 15 minutes Chayo L Floro CNM Work Phone: [facility] Comment on above: Encounter for anatomic survey Start: 06-24-2023 End: 06-24-2023 ambulatory TONI HERMOSILLO [facility] Start: 05-26-2023 End: 05-26-2023 ambulatory CHAYO L FLORO Not Available Start: 09-16-2022 End: 09-17-2022 [facility] Start: 09-16-2022 End: 09-16-2022 Subsequent hospital visit by physician Toni Hermosillo MD Work Phone: [facility] Procedures Date Procedure Procedure Detail Performing Clinician Start: 06-15-2024 Antibody screen rbc each serum technique Chayo L Floro CNM Work Phone: Start: 06-15-2024 Hemoglobin glycosylated a1c Chayo Naylor [facility] Work Phone: Start: 06-15-2024 Iaad ia hepatitis b surface antigen Chayo Naylor [facility] Work Phone: Start: 06-15-2024 TSH W/REFLEX TO FT4 Zhanna mario Naylor [facility] Work Phone: Start: 05-13-2024 Urine test visual color cmprsn meths Chayo Naylor [facility] Work Phone: Start: 04-13-2024 Adult depression scr eening assessment Kaci De Jesus COLD HEADER OPERATOR-CAUSTIC OPERATOR Work Phone: Start: 09-16-2022 Streptococcus pyogen es DNA [Presence] in Throat by ABNER with probe detection Toni Hermosillo MD Work Phone: Plan of Treatment Date Care Activity Detail Author Start: 04-28-2034 DTaP,Tdap and Td Vaccines (2 - Td or Tdap) DTaP,Tdap and Td Vaccines (2 - Td or Tdap) [facility] Start: 04-14-2025 End: 04-14-2025 Patient encounter procedure 04/14/2025 11:00 AM EDT Office Visit [facility] [address] [place] [phone] Kaci De Jesus APRN-CAUSTIC OPERATOR [address] [place] [address], [place] [phone] [facility] Start: 04-13-2025 Adult BMI Screening Adult BMI Screen ing [facility] Start: 04-13-2025 Depression Screening Depression Scre ening [facility] Start: 04-13-2025 Tobacco Screening Tobacco Screening [facility] Start: 11-28-2024 Adult BMI Screening Adult BMI Screen ing [facility] Start: 11-28-2024 Tobacco Screening Tobacco Screening [facility] Start: 07-08-2024 End: 07-08-2024 Patient encounter procedure 07/08/2024 9:30 AM EST Routine [facility] [address] [place] [id number] Chayo Naylor CNM [address] [place], [place] [id number] [facility] Start: 06-10-2024 End: 06-10-2025 Bacteria identified in Urine by Culture Urine culture Microbiology Routine examination or test, positive result Expected: 06/10/2024 (Approximate), Expires: 06/10/2025 [facility] Comment on above: Expected: 06/10/2024 (Approximate), Expires: 06/10/2025 Start: 06-10-2024 End: 06-10-2025 DRUG TOX MONITORIGN 6 W/ CONF,URINE DRUG TOX MONITORIGN 6 W/ CONF,URINE Lab Routine examination or test, positive result Expected: 06/10/2024 (Approximate), Expires: 06/10/2025 [facility] Work Phone: Comment on above: Expected: 06/10/2024 (Approximate), Expires: 06/10/2025 Start: 06-10-2024 End: 06-10-2025 Neisseria gonorrhoeae DNA [Presence] in Cervical mucus by ABNER with probe detection C. trachomatis / N. gonorrhoeae, DNA probe Pathology and Cytology Routine examination or test, positive result Expected: 06/10/2024 (Approximate), Expires: 06/10/2025 [facility] Comment on above: Expected: 06/10/2024 (Approximate), Expires: 06/10/2025 Start: 06-10-2024 End: 06-10-2025 URINALYSIS MICROSCOPIC URINALYSIS MICROSCOPIC Lab Routine examination or test, positive result Expected: 06/10/2024 (Approximate), Expires: 06/10/2025 [facility] Comment on above: Expected: 06/10/2024 (Approximate), Expires: 06/10/2025 Start: 05-13-2024 End: 05-13-2024 Professional / ancillary services management 05/13/2024 10:00 AM EST Ancillary Procedure [facility] [address] [phone] [facility] Start: 04-28-2024 End: 04-28-2024 Clinical Support 04/28/2024 10:00 AM EDT Clinical Support [facility] [address] [place] [phone] Kaci De Jesus, COLD HEADER OPERATOR-CAUSTIC OPERATOR [address], [place] [address] [facility] Start: 03-07-2024 Influenza vaccination Influenza Vacc ine [facility] Start: 09-17-2023 End: 09-17-2023 Patient encounter procedure 09/17/2023 2:30 PM EDT Routine [facility] [address] [place] [address] Chayo Naylor, CNM [address] [place] [address] [facility] Start: 08-19-2023 End: 08-19-2023 Patient encounter procedure [facility] Comment on above: Arrived Start: 2023 Screening for malign ant neoplasm of cervix Pap Smear [facility] Start: 06-24-2023 End: 06-24-2023 Patient encounter procedure Cardiology Non-invasive [facility] Start: 03-07-2022 Influenza vaccination INFLUENZA VACC INE (#1) [facility] Start: 2021 DTaP,Tdap and Td Vaccines (1 - Tdap) DTaP,Tdap and Td Vaccines (1 - Tdap) [facility] Start: 2020 Adult BMI Follow Up Plan Adult BMI Follow Up Plan [facility] Start: 2014 Depression Screening Depression Irma dill [facility] Start: 2012 MENB (1 of 2 - Risk Bexsero 2-dose series) MENB (1 of 2 - Risk Bexsero 2-dose series) [facility] Start: 2011 HPV VACCINES (1 - 2-dose series) HPV VACCINES (1 - 2-dose series) [facility] Start: 2009 DTaP/Tdap/Td VACCINE S (1 - Tdap) DTaP/Tdap/Td VACCINES (1 - Tdap) [facility] Start: 2003 MMR VACCINES (1 of 1 - Standard series) MMR VACCINES (1 of 1 - Standard series) [facility] Start: 2003 VARICELLA VACCINES ( 1 of 2 - 2-dose childhood series) VARICELLA VACCINES (1 of 2 - 2-dose childhood series) [facility] Start: 02-02-2003 COVID-19 Vaccine (#1) COVID-19 Vacci ne (#1) [facility] Start: 2002 HEPATITIS B VACCINES (1 of 3 - 3-dose series) HEPATITIS B VACCINES (1 of 3 - 3-dose series) [facility] Start: 2002 Screening for Chlamy red trachomatis Chlamydia Screening [facility] Immunizations Immunization Date Immunization Notes Care Provider Fa cili 04-28-2024 tetanus toxoid, redu seble diphtheria toxoid, and acellular pertussis vaccine, adsorbed Kaci De Jesus COLD HEADER OPERATOR-CAUSTIC OPERATOR Work Phone: [facility] 04-28-2024 Immunization, In Clinic,; Translations: [Drug or medicament (substance)] Kaci De Jesus COLD HEADER OPERATOR-CAUSTIC OPERATOR Work Phone: [facility] Payers Date Payer Category Payer Medicaid [facility] ..[id number] 2022 Medicaid [id number] 2021 Private Health Insurance [facility]ICA[facility] [id number] 2021 Unknown [id number] 2002 Unknown [id number] 2.16840.1.884374.3.579.2. 430 2002 Unknown [id number] 2.16840.1.948145.3.579.2. 430 2002 Unknown [id number] 2.16.840.1.134291.3.579.2. 430 2002 Unknown [id number] 2.16.840.1.343819.3.579.2. 1286 2002 Unknown [id number] 2.16840.1.129642.3.579.2. 1286 2002 Unknown [id number] 2.16840.1.049255.3.579.2. 1259 2002 Unknown [id number] 2.16.840.1.029201.3.579.2. 1259 2002 Unknown [id number] 2.16.840.1.120043.3.579.2. 1259 2002 Unknown [id number] 2.16.840.1.074485.3.579.2. 1259 2002 Unknown [id number] 2.16.840.1.848734.3.579.2. 1259 2002 Unknown [id number] 2.16.840.1.357762.3.579.2. 1259 2002 Unknown [id number] 2.16.840.1.755045.3.579.2. 1259 2002 Unknown [id number] 2.16.840.1.689538.3.579.2. 1259 2002 Unknown [id number] 2.16.840.1.846750.3.579.2. 1259 2002 Unknown [id number] 2.16.840.1.934349.3.579.2. 1259 2002 Unknown [id number] 2.16.840.1.403326.3.579.2. 1259 Social History Date Type Detail Facility Start: 04-01-2017 End: 04-24-2023 Tobacco smoking status SDIS Never smoked tobacco [facility] Start: 04-01-2017 End: 04-24-2023 Tobacco use and exposure Smokeless tobacco non-user [facility] Start: 07-03-2021 [facility] Start: 04-24-2023 End: 05-13-2024 Alcohol intake Lifetime non-drinker (finding) [facility] Start: 04-24-2023 End: 01-13-2024 History of Social function [facility] Start: 04-24-2023 End: 01-13-2024 Tobacco use panel [facility] Start: 03-13-2023 [facility] Start: 04-13-2024 Alcoholic beverage intake Ex-drinker (finding) [facility] Adolescent depressio n screening assessment 0 [facility] Start: 11-29-2023 Sex Female (finding) [facility] The thought of harmi ng myself has occurred to me Never [facility] Clinical Notes 06-24-2023 to 07-08-2024 Telephone Encounter - Ale Arce - 07/08/2024 8:29 AM ESTTelephone Encounter - Ale Arce - 07/08/2024 8:29 AM Alisha Naylor CNM - 06/01/2024 10:45 AM EST Note Date & Type Note Facility 07-08-2024 Telephone encount er Note Vm left 8:25 Pt left vm that she /family became ill yesterday and will need to cancel todays appointment. Please return call to reschedule. [facility] 07-08-2024 Miscellaneous Notes Formattin g of this note might be different from the original. Vm left 8:25 Pt left vm that she /family became ill yesterday and will need to cancel todays appointment. Please return call to reschedule. documented in this encounter [facility] 06-01-2024 History of Presen t illness Narrative Subjective No chief complaint on file. Nehal Snyder is a 23 y.o. at 10w4d with a working estimated date of delivery of 12/25/2024, by Last Menstrual Period who presents for a routine visit. She denies vaginal bleeding, leakage of fluid, decreased movements, and contractions. OB History Para Term AB Living 2 1 1 0 0 1 SAB IAB Ectopic Multiple Live Births 0 1 # Outcome Date GA Lbr Abraham/2nd Weight Sex Type Anes PTL Lv 2 Current 1 Term 11/29/23 39w2d 8 lb 12 oz M Vag-Spont N SHERWIN Her is complicated by: nausea The following portions of the chart were reviewed this encounter and updated as appropriate: Objective Physical Exam weight: 172 lb, Pregravid BMI: 31.82 Expected Total Weight Gain: 11 lb-19 lb BP: 120/80 Labs Imaging Assessment/Plan Diagnoses and all orders for this visit: Encounter for supervision of other normal , second trimester examination or test, positive result - Hepatitis B surface antigen; Future - Rubella antibody, IgG; Future - CBC; Future - Antibody screen; Future - RPR; Future - Hemoglobin A1c; Future - TSH W/REFLEX TO FT4; Future - HIV-1 and HIV-2 antibodies; Future - ABO/Rh; Future - DRUG TOX MONITORIGN 6 W/ CONF,URINE; Future - Hepatitis C antibody; Future - Urine culture; Future - URINALYSIS MICROSCOPIC; Future - C. trachomatis / N. gonorrhoeae, DNA probe; Future Urine protein-negative Urine glucose-negative Continue vitamin. Labs reviewed. Order placed for anatomy scan at 20 weeks. Follow up in 4 weeks for a routine visit. documented in this encounter [facility] 05-13-2024 History of Presen t illness Narrative Subjective Nehal Snyder is a 23 y.o. at 7w5d with a working estimated date of delivery of 12/25/2024, by Last Menstrual Period who presents for an initial visit. This is unplanned. 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 OB History Para Term AB Living 2 1 1 0 0 1 SAB IAB Ectopic Multiple Live Births 0 1 # Outcome Date GA Lbr Abraham/2nd Weight Sex Type Anes PTL Lv 2 Current 1 Term 11/29/23 39w2d 8 lb 12 oz M Vag-Spont N SHERWIN Her is complicated by: Patient referred by Gynecology History Last Pap The following portions of the chart were reviewed this encounter and updated as appropriate: @RULESMARTLINK([id number],TOBYESPRO V)@@RULESMARTLINK([id number],ALGYES PROV)@@MANDO ARTLINK([id number],MEDYESPROV)@@MARY ESMARTLINK([id number],PROBYESPROV)@ @RULESJOCYIN K([id number],MHYESPROV)@@RULESMARTL INK([id number],SHYESPROV)@@RULESMAR TLINK([id number], FHYESPROV)@@RULESMARTLINK([id number] 4,SOHYESPROV)@ Review of Systems History obtained from the patient Objective Physical Exam Expected Total Weight Gain: 11 lb-19 lb Pregravid BMI: 31.82 Urine protein-negative Urine glucose-negative Labs Assessment/Plan Diagnoses and all orders for this visit: examination or test, positive result - Ambulatory referral to Obstetrics / Gynecology; Future Amenorrhea - POCT , urine Blue education folder given. Patient educated on safe medication list. Genetic testing information given. Discussed the do's and don'ts in the blue folder. We discussed labs and what we draw and what we are testing for. Patient is also informed that we do a urine drug test. Patient also given office phone number and [facility] number to call in case of an emergency or after hours needs. PVU and all questions answered. We did discuss place of delivery. Patient should plan to go to [facility] for all services unless an emergency and they need to go to the closest ER. We can make other arrangements possibly if patient would like to deliver at another facility but I did explain I am now at [facility] 100% of the time and would like to do all deliveries there. documented in this encounter [facility] 04-28-2024 History of Presen t illness Narrative Tdap given in left deltoid, no adverse reactions VIS sheet given documented in this encounter [facility] 04-13-2024 History of Presen t illness Narrative Subjective Patient ID: Nehal Snyder is a 23 y.o. female. GARCÍA Calvert presents to the office to establish care. No concerns. Still breast feeding. Hx: Left BBB- reports since about 6 months of age. Denies any issues or concerns with this at this time. Reports she was on medication as a child but stopped the medication at about 19 years of age. She does not recall what medication. Follows routinely with women's health- Zhanna Naylor. Patient Active Problem List Diagnosis Perineal laceration during delivery, condition Current Outpatient Medications on File Prior to Visit Medication Sig Dispense Refill no115/iron/folic acid ( 19 ORAL) Take by mouth. No current facility-administered medications on file prior to visit. Past Surgical History: Procedure Laterality Date REPAIR TEAR VAGINAL N/A 11/29/2023 Performed by Benjamin Sandhu MD at [facility] Family History Problem Relation Age of Onset Hypertension Mother Hypertension Father Diabetes Maternal Grandmother Diabetes Paternal Grandmother The following portions of the patient's history were reviewed and updated as appropriate: allergies, current medications, past family history, past medical history, past social history, past surgical history, problem list, and medication reconciliation was completed including current medication and post discharge medication. Review of Systems Constitutional: Negative for chills, diaphoresis, fatigue, fever and unexpected weight change. HENT: Negative. Eyes: Negative. Respiratory: Negative for cough, chest tightness, shortness of breath and wheezing. Cardiovascular: Negative for chest pain, palpitations and leg swelling. Gastrointestinal: Negative for abdominal pain, diarrhea, nausea and vomiting. Endocrine: Negative for polydipsia, polyphagia and polyuria. Genitourinary: Negative for difficulty urinating, frequency, hematuria and urgency. Musculoskeletal: Negative for arthralgias, gait problem, joint swelling and neck pain. Skin: Negative. Neurological: Negative for dizziness, syncope, weakness, light-headedness, numbness and headaches. Psychiatric/Behavioral: Negative for self-injury and suicidal ideas. Objective Physical Exam Vitals and nursing note reviewed. Constitutional: General: She is not in acute distress. Appearance: Normal appearance. She is well-developed. She is not ill-appearing. HENT: Head: Normocephalic and atraumatic. Right Ear: Tympanic membrane, ear canal and external ear normal. Left Ear: Tympanic membrane, ear canal and external ear normal. Nose: Nose normal. Mouth/Throat: Mouth: Mucous membranes are moist. Pharynx: Oropharynx is clear. Eyes: Extraocular Movements: Extraocular movements intact. Pupils: Pupils are equal, round, and reactive to light. Neck: Vascular: No carotid bruit. Cardiovascular: Rate and Rhythm: Normal rate and regular rhythm. Pulses: Normal pulses. Heart sounds: Normal heart sounds. No murmur heard. Pulmonary: Effort: Pulmonary effort is normal. No respiratory distress. Breath sounds: Normal breath sounds. No wheezing, rhonchi or rales. Chest: Chest wall: No tenderness. Abdominal: General: Bowel sounds are normal. There is no distension. Palpations: Abdomen is soft. There is no mass. Tenderness: There is no abdominal tenderness. There is no guarding or rebound. Hernia: No hernia is present. Musculoskeletal: General: Normal range of motion. Cervical back: Normal range of motion and neck supple. No rigidity or tenderness. Right lower leg: No edema. Left lower leg: No edema. Lymphadenopathy: Cervical: No cervical adenopathy. Skin: General: Skin is warm and dry. Capillary Refill: Capillary refill takes less than 2 seconds. Findings: No rash. Neurological: General: No focal deficit present. Mental Status: She is alert and oriented to person, place, and time. Motor: No weakness. Psychiatric: Mood and Affect: Mood normal. Behavior: Behavior normal. Assessment/Plan Nehal presents to the office to establish care. She has no concerns today. She reports she has not had tetanus vaccine in over 10 years. She should have Tdap anyway d/t having . She should be vaccinated for pertussis. She may follow routinely for annual wellness. Nehal was seen today for establish care. Diagnoses and all orders for this visit: LBBB (left bundle branch block) Encounter to establish care STEPHEN Vásquez 04/13/24 1024 documented in this encounter [facility] 08-19-2023 History of Presen t illness Narrative Subjective No chief complaint on file. Nehal Snyder is a 23 y.o. at 24w5d [...] 140/100 Repeat BP 122/80 after resting Urine glucose-negative,protein-negati ve Labs Imaging Assessment/Plan Diagnoses and all orders for this visit: Encounter for care of first , second trimester Continue vitamin. Labs reviewed. Rhogam not needed, + blood type GTT T 28 WEEKS Follow up in 4 weeks for a routine visit. documented in this encounter [facility] 06-24-2023 History of Presen t illness Narrative ,Subjective No chief complaint on file. Nehal Snyder is a 22 y.o. at 16w5d with a working estimated date of delivery of 12/04/2023, by Last Menstrual Period who presents for a routine visit. She denies vaginal bleeding, leakage of fluid, decreased movements, or contractions. Her is complicated by: The following portions of the chart were reviewed this encounter and updated as appropriate: @RULESMARTLINK([id number],TOBYESPRO V)@@RULESMARTLINK([id number],ALGYES PROV)@@RULESM ARTLINK([id number],MEDYESPROV)@@RUL ESMARTLINK([id number],PROBYESPROV)@ @RULESMARTLIN K([id number],MHYESPROV)@@RULESMARTL INK([id number],SHYESPROV)@@RULESMAR TLINK([id number], FHYESPROV)@@RULESMARTLINK([id number] 4,SOHYESPROV)@ Objective Physical Exam Expected Total Weight Gain: Could not be calculated Pregravid BMI: Could not be calculated Urine glucose-negative,protein-negati ve Labs No results found for: HGB , HCT , LABPLAT , ABO , LABRHF , LABANTI , LABRPR , HEPBSAG , HIVAB , RUBELLAIGGQT No results found for: PAPPA , AFP , HCG , ESTRIOL , INHBA No results found for: GLUF , GLUT1 , [id number] , [id number] Imaging Assessment/Plan Continue vitamin. Labs reviewed. Rhogam GTT . Follow up in 2 weeks for a routine visit. documented in this encounter [facility] Evaluation note Diagnosis Encounter for anatomic survey Encounter for anatomic survey documented in this encounter [facility] Healthcare[facility]* Diagnosis Encounter for care of first , second trimester- Primary documented in this encounter [facility] HealthcareEvaluation note* Diagnosis LBBB (left bundle branch block)- Primary Other left bundle branch block Encounter to establish care [facility] Diagnosis Need for prophylactic vaccination against diphtheria and tetanus- Primary [facility] Diagnosis examination or test, positive result- Primary Amenorrhea Absence of menstruation [facility]* Diagnosis Encounter for supervision of other normal , second trimester- Primary examination or test, positive result documented in this encounter [facility]* Attachments The following attachments cannot be sent through Care Everywhere. * Tdap vaccine ([place]) documented in this [facility] SystemInstructionsNot on file documented in [place] encounterProCent[place] Summary Purpose Family History No Family History Records FoundNo Family History Records FoundNo Family History Records FoundNo Family History Records Found Advance Directives No Advanced Directives Records FoundNo Advanced Directives Records FoundNo Advanced Directives Records FoundNo Advanced Directives Records Found Additional Source Comments Care Teams (unrecognized sec tion and content) Assistant Softball Coach Relationship Specialty Start Date End Date Toni Hermosillo MD [address] [place] [phone] PCP - General 04/24/06 Assistant Softball Coach Relationship Specialty Start Date End Date Kaci De Jesus APRN-[facility] [address] [place] [phone] PCP - General Nurse Practitioner 04/13/24 INFORMATION SOURCE (unrecogn ized section and content) DATE CREATED AUTHOR 07/02/2023 [facility] DATE CREATED AUTHOR AUTHOR'S ORGANIZ ATION 12/01/2023 [facility] DATE CREATED AUTHOR AUTHOR'S ORGANIZ ATION 04/29/2024 [facility] DATE CREATED AUTHOR AUTHOR'S ORGANIZ ATION 05/17/2024 [facility] dical Specialists EPIC Reason for Visit (unrecogniz ed section and content) Reason Comments Establish Care FOR RECORDS PERTAINING TO PATIENTS WHO ARE [...] BE BASED ON THE PRIMARY CLINICAL RECORDS. [facility] [address] [facility]. provides no warranty or guarantee of the accuracy or completeness of information in this document.
--- NOTE | 2024-07-18 15:05 | US_ITS ---
[facility] [place] [id number] Patient Name: MARY GAMEZ MRN: [id number] date: 2000 Sex: F Assigned Patient Location: ER Current Patient Location: ER Accession/Order Number: [id number] Exam Date: 07/18/2024 15:35 Report Date: 07/18/2024 16:01 At the request of: SRAVANTHI WARD Procedure: US OB limited EXAM: US OB limited HISTORY: 17 weeks, intermittent pain COMPARISON: Ultrasound OB biophysical 09/26/2023 TECHNIQUE: Transabdominal ultrasound FINDINGS: Heart rate: 145 bpm Placenta: Anterior, grade 0 with suspected circumvallate placenta (normal variant). No abruption or subchorionic hematoma. GA: 17 weeks 1 day INDIGO: 12/25/2024 US/US OB limited IMPRESSION: 1. Single live intrauterine . 2. No acute or suspicious abnormality of the placenta. Electronically authenticated by: DEMETRIUS RIBEIRO Date: 07/18/2024 16:01
--- NOTE | 2024-07-18 15:06 | ED_ITS ---
HPI - General Chief complaint: OB/Uterine Contractions Stated complaint: BACK PAIN AND LABOR PAIN SYMPTHOMS 17 WEEKS PREG. Time Seen by Provider: 07/18/24 14:52 Mode of arrival: walk-in History of Present Illness HPI Narrative: 23-year-old female, 2 para 1, presents for intermittent abdominal pain. For 8 days she has been having intermittent abdominal pain that she states last for about a minute each time. 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 The patient states that during the ultrasound they caught one of the contractions. She was not put on any specific medication for it. No vaginal bleeding and she is not having any pain now. No injury. Related Data Previous Rx's ?Medication ?Instructions ?Recorded prednisone 20 mg tablet 20 mg PO BID 5 days #10 tabs 01/09/23 acetaminophen 500 mg tablet 1,000 mg (2 x 500 mg) PO Q6H PRN 07/26/23 Pain Scale 1-3 4 days #20 tabs ondansetron 8 mg disintegrating 8 mg PO Q8H PRN nausea and 07/26/23 tablet vomiting 5 days #20 tabs prednisone 20 mg tablet 20 mg PO BID 7 days #14 tabs 08/08/23 Allergies Allergy/AdvReac Type Severity Reaction Status Date / Time sulfamethoxazole (From Allergy Intermediate Rash Verified 07/26/23 07:53 Bactrim) trimethoprim (From Bactrim) Allergy Intermediate Rash Verified 07/26/23 07:53 PFSH PFSH Social History Smoking status: Never smoker Little interest or pleasure in doing things: not at all Feeling down, depressed, or hopeless: not at all Exam Constitutional Vital Signs, click to edit/add: Last Vital Signs Temp 97.4 F L 07/18/24 14:57 Pulse 89 07/18/24 14:57 Resp 18 07/18/24 14:57 BP 127/72 07/18/24 14:57 Pulse Ox 100 07/18/24 14:57 Course Vital Signs Vital signs: Vital Signs Temperature 97.4 F L 07/18/24 14:57 Pulse Rate 89 07/18/24 14:57 Respiratory Rate 18 07/18/24 14:57 Blood Pressure 127/72 07/18/24 14:57 Pulse Oximetry 100 07/18/24 14:57 Temperature 97.4 F L 07/18/24 14:57 Pulse Rate 89 07/18/24 14:57 Respiratory Rate 18 07/18/24 14:57 Blood Pressure 127/72 07/18/24 14:57 Pulse Oximetry 100 07/18/24 14:57 MDM - OB/Uterine Contractions MDM Narrative Medical decision making narrative: Blood work and ultrasound are normal. She has no symptoms now. Case discussed with Dr. Patterson and she is able to be discharged home. Findings were discussed thoroughly with the patient. I have no suspicion of labor. Differential Diagnosis Differential diagnosis: Likely premature labor and other (Nonspecific abdominal pain) Lab Data Attestation: I reviewed the patient's lab results. Labs: Lab Results 07/18/24 Range/Units 15:15 WBC 11.1 H (4.0-11.0) 10^3/uL RBC 4.34 (4.20-5.40) 10^6/uL Hgb 12.6 (12.0-16.0) g/dL Hct 36.6 (36.0-48.0) % MCV 84.3 (81.0-99.0) fL MCH 29.0 (26.7-34.0) pg MCHC 34.4 (29.9-35.2) g/dL RDW 14.6 (11.0-15.0) % Plt Count 215 (150-450) 10^3/uL MPV 11.0 (9.5-13.5) fL Neut % (Auto) 72.5 (43.0-75.0) % Lymph % (Auto) 20.3 L (20.5-60.0) % [place] % (Auto) 5.5 (1.7-12.0) % Eos % (Auto) 0.9 (0.9-7.0) % Baso % (Auto) 0.2 (0.2-2.0) % Neut # (Auto) 8.1 H (1.4-6.5) 10^3/uL Lymph # (Auto) 2.3 (1.2-3.8) 10^3/uL [place] # (Auto) 0.6 (0.3-0.8) 10^3/uL Eos # (Auto) 0.1 (0.0-0.7) 10^3/uL Baso # (Auto) 0.0 (0.0-0.1) 10^3/uL Abs Immat Gran (auto) 0.07 H (0.00-0.03) 10^3/uL Imm/Tot Granulo (auto) 0.6 H (0.0-0.5) % Sodium 139 (136-145) mmol/L Potassium 3.3 L (3.5-5.1) mmol/L Chloride 104 (98-107) mmol/L Carbon Dioxide 23.2 (21.0-32.0) mmol/L Anion Gap 15.1 BUN 7.0 (7.0-18.0) mg/dL Creatinine 0.61 (0.55-1.02) mg/dL Est GFR ( Amer) >60 (>=60 mL/min/1.73m^2) Est GFR (Non-Af Amer) >60 (>=60 mL/min/1.73m^2) BUN/Creatinine Ratio 11.5 Glucose 128 H (74-106) mg/dL Calcium 9.0 (8.5-10.1) mg/dL Imaging Data Pelvic ultrasound: Radiologist's impression: ITS Impressions Obstetrics Ultrasound 07/18/24 15:05 IMPRESSION: 1. Single live intrauterine . 2. No acute or suspicious abnormality of the placenta. Electronically authenticated by: DEMETRIUS RIBEIRO Date: 07/18/2024 16:01 Discharge Plan Discharge Chief Complaint: OB/Uterine Contractions Clinical Impression: Abdominal pain during Patient Disposition: Home, Self-Care Time of Disposition Decision: 16:22 Condition: Good Mode of Transportation: Private Vehicle Prescriptions / Home Meds: No Action prednisone 20 mg tablet 20 mg PO BID 5 Days Qty: 10 0RF acetaminophen 500 mg Tablet 1,000 mg PO Q6H PRN (Reason: Pain Scale 1-3) 4 Days Qty: 20 0RF ondansetron 8 mg tablet,disintegrating 8 mg PO Q8H PRN (Reason: nausea and vomiting) 5 Days Qty: 20 0RF prednisone 20 mg tablet 20 mg PO BID 7 Days Qty: 14 0RF Print Language: Turkish Instructions: Abdominal Pain in (ED) Referrals: Physician,Non-Staff, MD [Primary Care Provider] - 1 week
[2024-07-18 15:23] LABS: Basophils Percent Auto 0.2 % (0.2-2.0); Eosinophils Absolute Auto 0.1 10^3/uL (0.0-0.7); Eosinophils Percent Auto 0.9 % (0.9-7.0); Hematocrit 36.6 % (36.0-48.0); Hemoglobin 12.6 g/dL (12.0-16.0); Immature Granulocytes Abs Auto 0.07 10^3/uL (0.00-0.03); Immature Granulocytes Pct Auto 0.6 % (0.0-0.5); Lymphocytes Absolute Auto 2.3 10^3/uL (1.2-3.8); Lymphocytes Percent Auto 20.3 % (20.5-60.0); Mean Corpuscular HGB Conc 34.4 g/dL (29.9-35.2); Mean Corpuscular Volume 84.3 fL (81.0-99.0); Monocytes Absolute Auto 0.6 10^3/uL (0.3-0.8); Monocytes Percent Auto 5.5 % (1.7-12.0); Neutrophils Absolute Auto 8.1 10^3/uL (1.4-6.5); Neutrophils Percent Auto 72.5 % (43.0-75.0); Platelet Count 215 10^3/uL (150-450); Red Blood Count 4.34 10^6/uL (4.20-5.40); Red Cell Distribution Width 14.6 % (11.0-15.0); White Blood Count 11.1 10^3/uL (4.0-11.0)
[2024-07-18 15:31] LABS: Anion Gap 15.1; BUN Creatinine Ratio 11.5; Carbon Dioxide 23.2 mmol/L (21.0-32.0); Chloride 104 mmol/L (98-107); Estimated GFR (African America >60 (>=60 mL/min/1.73m^2); Estimated GFR (Non-African Ame >60 (>=60 mL/min/1.73m^2); Glucose 128 mg/dL (74-106); Potassium 3.3 mmol/L (3.5-5.1); Sodium 139 mmol/L (136-145)
== END 2024-07-18 16:38 | disposition home or self-care (01) ==
PROVIDERS: Emergency Provider Emergency Medicine
DX: O26.892 Other specified pregnancy related conditions, second trimester (principal); R10.9 Unspecified abdominal pain; Z3A.17 17 weeks gestation of pregnancy
CPT/HCPCS: 36415; 76815; 80048; 85025; 99284